=== PATIENT | female | born 1990 | race Caucasian/White ===

== ENCOUNTER 2019-05-24 09:07 | Emergency (ER) | payer OTHER, SELFPAY ==
--- NOTE | 2019-05-24 09:16 | ED.URI ---
HPI - URI/Sore Throat General Chief Complaint: Upper Respiratory Infection Stated Complaint: EARACHE/SORE THROAT Time Seen by Provider: 05/24/19 09:27 Source: patient and RN notes reviewed Mode of arrival: ambulatory Limitations: no limitations History of Present Illness HPI Narrative: 29-year-old female presents with concern for left sore throat and left ear pain that started 2 days ago. Reports pain worsened yesterday. She reports she has had sinus surgery for deviated septum in 2011, symptoms are starting to worsen since her sinus surgery. She reports sinus congestion for 4 days. She denies fever, chills, general malaise. Reports she has been trying to use Flonase. Denies ear discharge MD elicited complaint: other (ear) Related Data Home Medications Medication Instructions Recorded Confirmed metformin 500 mg PO BID 05/24/19 05/24/19 semaglutide [Ozempic] 1 mg SUBCUT WEEKLY 05/24/19 05/24/19 sertraline 150 mg PO DAILY 05/24/19 05/24/19 Allergies Allergy/AdvReac Type Severity Reaction Status Date / Time No Known Allergies Allergy Verified 05/24/19 09:23 Review of Systems Review of Systems: Narrative: CONSTITUTIONAL: Denies malaise, chills, sweats, or fever. EYES: Denies visual changes, redness, or discharge. ENT: Reports rhinorrhea, congestion, sinus pain, left otalgia and sore throat. CARDIOVASCULAR: Denies chest pain, palpitations, or edema. RESPIRATORY: Denies cough or dyspnea. GASTROINTESTINAL: Denies abdominal pain, nausea, vomiting, diarrhea SKIN: Denies rash or itching. MUSCULOSKELETAL: Denies myalgia. NEUROLOGIC: Denies headache. All systems reviewed & are unremarkable except as noted in HPI and below PMFSH Comments At time of signature, agree with nursing past medical, surgical, social and family history. There is no relevant family history pertinent to the presenting complaint Exam Narrative: Exam Narrative: GENERAL: Well-appearing, well-nourished, and in no acute distress. HEAD: Normocephalic, atraumatic. EYES: PERRLA, conjunctivae clear, and EOMI. ENT: Nares clear, turbinates edematous and erythematous, more edematous on the left, clear discharge. Mucous membranes moist. TM pearly barrera with dull light reflex on the left, sharp light reflex on the right; no tragal tenderness. Oropharynx not erythematous without lesions. Tonsils not enlarged and without exudate, no drooling, no hoarseness, no trismus. NECK: Supple. No lymphadenopathy CHEST: Clear to auscultation, breath sounds equal. No wheezing, rhonchi, rales, or stridor. No respiratory distress, speaks in full sentences. HEART: Regular rate and rhythm. No murmur heard. Normal peripheral pulses. SKIN: Warm, dry, no rash. NEURO: Alert and oriented x3. PSYCH: Normal mood and affect Course Course Emergency Course: Patient is aware of diagnosis, understands and agrees to treatment plan. Anticipatory guidance given. Patient agrees to follow-up as directed and is aware of reasons to seek care at the emergency department. Portions of this record may have been created with voice recognition software Vital Signs Vital signs: Vital Signs Temperature 98 F 05/24/19 09:17 Pulse Rate 94 05/24/19 09:17 Respiratory Rate 20 05/24/19 09:17 Blood Pressure 125/92 H 05/24/19 09:17 Pulse Oximetry 98 05/24/19 09:17 Temperature 98 F 05/24/19 09:17 Pulse Rate 94 05/24/19 09:17 Respiratory Rate 20 05/24/19 09:17 Blood Pressure 125/92 H 05/24/19 09:17 Pulse Oximetry 98 05/24/19 09:17 Reviewed. Patient has been instructed to follow up with her primary care provider within the next week regarding her elevated blood pressure today.. MDM - URI/Sore Throat MDM Narrative Medical decision making narrative: CONSTITUTIONAL: Denies malaise, chills, sweats, or fever. EYES: Denies visual changes, redness, or discharge. ENT: Reports rhinorrhea, congestion, sinus pain, otalgia and sore throat. CARDIOVASCULAR: Denies chest pain, palpitations, or kolby
[2019-05-24 09:17] VITALS: BP 125/92; PULSE 94; RESP 20; TEMP 36.6; O2SAT 98
== END 2019-05-24 09:46 | disposition home or self-care (01) ==
PROVIDERS: Emergency Provider Nurse Practitioner; PCP Family Medicine
DX: J01.90 Acute sinusitis, unspecified (principal); H92.02 Otalgia, left ear; E11.9 Type 2 diabetes mellitus without complications; F41.9 Anxiety disorder, unspecified
CPT/HCPCS: 99213; G0463

== ENCOUNTER 2019-06-08 09:01 | Emergency (ER) | payer OTHER, SELFPAY ==
--- NOTE | ~2019-06-08 | CT_ITS ---
EXAMINATION: CT abdomen pelvis w con DATE: 06/08/2019 10:51 INDICATION: Epigastric pain and vomiting TECHNIQUE: Computed tomography (CT) of the abdomen and pelvis was performed with 100 mL Omnipaque-350 intravenous contrast. Automated exposure control and iterative reconstruction technique were employe d. The dose-length product was 1582.12 mGy-cm. COMPARISON: None FINDINGS: Lung bases are clear. Heart size is normal. No pericardial or pleural effusion. Hepatomegaly with dif fuse hepatic steatosis with focal sparing along the gallbladder fossa. Gallbladder, pancreas, bilater al adrenal glands and kidneys are normal. Nonspecific splenomegaly measuring 15.3 cm in length. Bowel s including the appendix are normal. Bladder, anteverted uterus and bilateral adnexa are unremarkable . No free intraperitoneal gas or fluid. No pathologically enlarged thoracic lymphadenopathy. Supraumb ilical and infraumbilical ventral diastases containing fat with tiny fat-containing umbilical hernia. Mild lower lumbar levocurvature with mild spondylosis. IMPRESSION: 1. No acute intra-abdominal/pelvic process. 2. Hepatosplenomegaly with diffuse hepatic steatosis which may be related to body habitus. Reviewed, dictated and finalized at location A. GER PERIOPERATIVE IMPRESSION: 1. No acute intra-abdominal/pelvic process. 2. Hepatosplenomegaly with diffuse hepatic steatosis which may be related to sweta dy habitus.
[2019-06-08 09:16] VITALS: BP 137/88; PULSE 133; RESP 20; TEMP 36.2; O2SAT 100
--- NOTE | 2019-06-08 09:26 | ED.ABDPAIN ---
HPI - Abdominal Pain General Chief Complaint: Abdominal Pain Stated Complaint: Abdomen pain Time Seen by Provider: 06/08/19 09:26 Source: patient Mode of arrival: ambulatory Limitations: no limitations History of Present Illness HPI narrative: 29-year-old woman comes in today complaining of vomiting and diarrhea that started overnight. She states that she woke up at 2:00 a.m. and had an episode of lumen is diarrhea. Approximately 2 hours later she woke up and started vomiting. She also started having epigastric pain. She denies any sick exposures and has had no fever, dysuria, hematuria, blood in her stool or vomitus, melena, or rash. MD elicited complaint: abdominal pain Onset (ago): hour(s) (6) Pain Consistency: constant Location: epigastric Severity: severe Quality: burning Radiation: none Migration to: no migration Relieving factors: vomiting Associated symptoms: nausea, vomiting and diarrhea Related Data Patient : No Home Medications Medication Instructions Recorded Confirmed metformin 500 mg PO BID 05/24/19 06/08/19 semaglutide [Ozempic] 1 mg SUBCUT WEEKLY 05/24/19 06/08/19 sertraline 150 mg PO DAILY 05/24/19 06/08/19 albuterol sulfate [ProAir HFA] 2 puff INHALATION PRN 06/08/19 06/08/19 alprazolam 0.5 mg PO PRN 06/08/19 06/08/19 norgestimate-ethinyl estradiol 1 tablet PO DAILY 06/08/19 06/08/19 [Sprintec (28)] Allergies Allergy/AdvReac Type Severity Reaction Status Date / Time No Known Allergies Allergy Verified 05/24/19 09:23 Review of Systems Constitutional: Constitutional: Denies chills, Denies fever(s) and Denies weakness Eyes: Eyes: Denies change in vision and Denies photophobia ENT: Denies dysphagia, Denies nasal congestion and Denies sore throat Cardiovascular: Cardiovascular: Denies chest pain and Denies radiating jaw, neck or arm pain Respiratory: Respiratory: Denies cough, Denies dyspnea and Denies wheezing Gastrointestinal: Gastrointestinal: Reports abdominal pain, Reports diarrhea, Reports nausea and Reports vomiting Genitourinary: Genitourinary: Denies hematuria, Denies nocturia and Denies dysuria Musculoskeletal: Musculoskeletal: Denies arthralgias and Denies muscle cramps Integumentary/Breasts: Skin/Breast: Denies pruritus, Denies erythema and Denies rash Neurologic: Denies vertigo, Denies dizziness and Denies syncope Psychiatric: Psychiatric: Denies anxiety and Denies depression Endocrine: Endocrine: Denies polydipsia and Denies polyuria Hematologic/Lymphatic: Hematologic/Lymphatic: Denies easy bleeding and Denies easy bruising Allergic/Immunologic: Allergic/Immunologic: Denies lip swelling and Denies wheezing PMFSH Past Medical History Medical History Anxiety Type 2 diabetes mellitus Surgical History Surgical History H/O sinus surgery History of Social History Social History Smoking status: Never smoker Substance use: never Living arrangements: with family Exam Const: General: alert Nutritional Appearance: obese Orientation/consciousness: patient oriented x3 Limitations: no limitations Other: moderate acute distress. HENMT: Ears: external ears normal, TM's normal bilaterally and EAC's normal Mouth: Yes Normal oral and palatal mucosa present and Yes moist mucous membranes Throat: posterior oropharynx normal and uvula midline Eyes: Conjunctivae: conjunctivae normal Pupils: Equal, round and reactive pupils present EOM: EOMs intact bilaterally Resp: Effort & Inspection: normal respiratory effort and not labored Auscultation: clear to auscultation bilaterally, no rales, no rhonchi and no wheezes Cardio: Rate: regular rate Rhythm: regular rhythm Heart sounds: no murmurs GI: Inspection: non-distended GI Palp: Yes Soft to palpation, Yes Tenderness to palpation
[2019-06-08] MEDS: ONDANSETRON INJ 4 MG/2 ML VIAL IV PUSH (09:32)
[2019-06-08] MEDS: SODIUM CHLORIDE 0.9% IV 1,000 ML 999 ML IV CONT ×2 (09:32→10:49)
[2019-06-08] MEDS: PANTOPRAZOLE SODIUM IV 40 MG VIAL IV PUSH (09:37)
[2019-06-08 09:51] LABS: Basophils Absolute Auto 0.04 K/mm3 (0.00-0.10); Basophils Percent Auto 0.3 % (0.0-1.0); Eosinophils Absolute Auto 0.26 K/mm3 (0.02-0.50); Hematocrit 44.1 % (35.0-49.0); Hemoglobin 14.5 g/dL (12.0-15.0); Immature Granulocyte Absolute 0.06 K/mm3 (0.00-0.00); Immature Granulocyte Percent A 0.5 % (0.0-0.0); Lymphocytes Absolute Auto 0.84 K/mm3 (1.10-4.50); Lymphocytes Percent Auto 6.4 % (18.0-42.0); Mean Corpuscular HGB Conc 32.9 g/dL (32.0-36.0); Mean Corpuscular Hemoglobin 27.8 pg (27.0-31.0); Mean Corpuscular Volume 84.6 fL (78.0-102.0); Mean Platelet Volume 10.9 fl (9.2-11.8); Monocytes Absolute Auto 0.67 K/mm3 (0.10-0.90); Monocytes Percent Auto 5.1 % (2.0-11.0); Neutrophils Absolute Auto 11.3 K/mm3 (1.7-7.2); Neutrophils Percent Auto 85.7 % (50.0-70.0); Platelet Count Result 170 K/mm3 (150-420); Red Blood Count 5.21 M/mm3 (4.20-5.40); Red Cell Distribution Width 12.9 % (11.6-14.4); White Blood Count 13.2 K/mm3 (4.8-10.8)
[2019-06-08 09:53] LABS: Bilirubin Urine Negative (Negative); Blood Urine Negative (Negative); Glucose Urine UA Negative (Negative); Ketones Urine Trace (Negative); Leukocyte Esterase Ur Negative (Negative); Nitrate Urine Negative (Negative); Protein Urine 2+ (Negative); Specific Grav Ur >= 1.030 (1.010-1.020); Urobilinogen Urine 0.2 mg/dL (0.2-1.0); pH Urine 5.5 (5.0-8.0)
[2019-06-08 09:54] LABS: Add Urine Microscopic? YES; Appearance Urine Clear (Clear); Color Urine Dark Yellow (Yellow)
[2019-06-08 09:55] LABS: Pregnancy On Board Control Negative; Urine Pregnancy Test Negative
[2019-06-08 09:56] LABS: Specific Gravity Ur > 1.030 (1.010-1.035)
[2019-06-08 10:08] LABS: Alanine Aminotransferase 39 U/L (14-59); Albumin Level 3.4 g/dL (3.4-5.0); Alkaline Phosphatase 86 U/L (46-116); Anion Gap 19.4 mmol/L (7-16); Aspartate Amino Transferase 33 U/L (15-37); Bilirubin,Total 0.4 mg/dL (0.00-1.00); Blood Urea Nitrogen 19 mg/dL (7-18); Calcium 8.4 mg/dL (8.5-10.1); Carbon Dioxide 20 mmol/L (21-32); Chloride 104 mmol/L (98-108); Estimated CRCL calculation 102 ml/min; Estimated Glomerular Filt Rate > 60; GGT 31 U/L (5-55); Glucose 174 mg/dL (70-99); Lipase 106 U/L (73-393); Osmolality Calculated 294 mOsm/kg (285-295); Potassium 4.4 mmol/L (3.5-5.1); Sodium 139 mmol/L (136-145); Total Protein 7.2 g/dL (6.4-8.2)
[2019-06-08] MEDS: METOCLOPRAMIDE HCL INJ 10 MG/2 ML VIAL IV PUSH (10:08)
[2019-06-08] MEDS: HYDROMORPHONE HCL 2 MG/ML VIAL 0.5 MG IV PUSH (10:09)
[2019-06-08 10:22] VITALS: BP 126/79; PULSE 122; RESP 20; O2SAT 96
--- NOTE | 2019-06-08 10:29 | PC.NURSE ---
Report given to Carolann Stewart
[2019-06-08 12:13] VITALS: PULSE 89; RESP 20; TEMP 36.6; O2SAT 97
== END 2019-06-08 12:14 | disposition home or self-care (01) ==
PROVIDERS: Emergency Provider Emergency Medicine; PCP Family Medicine
DX: K52.9 Noninfective gastroenteritis and colitis, unspecified (principal)
CPT/HCPCS: 36415; 74177; 80053; 81001; 81025; 82977; 83690; 85025; 96361; 96374; 96375; 99283; 99284; C9113; J1170; J2405; J2765; J7030; Q9965

== ENCOUNTER 2022-02-13 02:30 | Emergency (ER) | payer OTHER, SELFPAY ==
[2022-02-13 02:31] VITALS: BP 140/90; PULSE 90; RESP 20; TEMP 37; O2SAT 98
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
--- NOTE | 2022-02-13 03:21 | PC.NURSE ---
offered family to be with patient, family declined
[2022-02-13 03:35] VITALS: BP 140/90; PULSE 78; RESP 18; TEMP 37; O2SAT 100
== END 2022-02-13 03:41 | disposition home or self-care (01) ==
PROVIDERS: Emergency Provider Emergency Medicine; PCP Family Medicine
DX: T14.8XXA Other injury of unspecified body region, initial encounter (principal); T76.11XA Adult physical abuse, suspected, initial encounter
CPT/HCPCS: 99282

== ENCOUNTER 2022-09-15 18:08 | Emergency (ER) | payer OTHER, SELFPAY ==
[2022-09-15 19:02] VITALS: BP 127/85; PULSE 78; RESP 16; TEMP 36.8; O2SAT 100
--- NOTE | 2022-09-15 19:17 | ED.URI ---
HPI - URI/Sore Throat General Chief Complaint: Upper Respiratory Infection Stated Complaint: SORE THROAT/SINUS CONGESITON Time Seen by Provider: 09/15/22 19:17 Source: patient Mode of arrival: ambulatory Limitations: no limitations History of Present Illness HPI Narrative: Patient is a 32-year-old female who presents with 4 days of congestion, ear fullness, intermittent cough and sore throat. Patient states sore throat is worsening. Has been taking Mucinex nasal spray, Benadryl and daily allergy medicine with moderate relief. Denies any fever, chills, nausea, vomiting, diarrhea. Related Data Home Medications Medication Instructions Recorded Confirmed sertraline 100 mg tablet 150 mg PO DAILY 05/24/19 09/15/22 albuterol sulfate 90 mcg/actuation 2 puff inhalation PRN 06/08/19 02/13/22 aerosol inhaler (ProAir HFA) alprazolam 0.5 mg tablet 0.5 mg PO PRN 06/08/19 02/13/22 minocycline 100 mg capsule 100 mg BID 09/15/22 09/15/22 norgestimate 0.25 mg-ethinyl 1 tablet DAILY 09/15/22 09/15/22 estradiol 35 mcg tablet (Sprintec (28)) tirzepatide 2.5 mg/0.5 mL 5 mg subcut WEEKLY 09/15/22 09/15/22 subcutaneous pen injector (Mounjaro) Allergies Allergy/AdvReac Type Severity Reaction Status Date / Time No Known Allergies Allergy Verified 09/15/22 19:04 Review of Systems Review of Systems: All systems reviewed & are unremarkable except as noted in HPI and below Constitutional: Constitutional: Denies body ache(s), Denies chills, Denies fatigue, Denies fever(s), Denies headache(s), Denies malaise and Denies weakness Eyes: Eyes: Denies blurry vision, Denies itchy eyes and Denies loss of vision ENT: Denies otalgia, Denies headache(s), Reports nasal congestion, Denies sinus pain and Reports sore throat Cardiovascular: Cardiovascular: Denies chest pain, Denies irregular heart rhythm and Denies dyspnea Respiratory: Respiratory: Reports cough and Denies dyspnea Gastrointestinal: Gastrointestinal: Denies abdominal pain, Denies diarrhea, Denies nausea and Denies vomiting Musculoskeletal: Musculoskeletal: Denies back pain, Denies myalgias and Denies arthralgias Integumentary/Breasts: Skin/Breast: Denies pruritus and Denies rash Neurologic: Denies headache(s), Denies loss of vision and Denies weakness Psychiatric: Psychiatric: Reports no additional psychiatric complaints Endocrine: Endocrine: Denies fatigue Allergic/Immunologic: Allergic/Immunologic: Denies itchy eyes PMFSH Past Medical History Medical History (Updated 09/15/22 @ 19:44 by Vero Page APRN) Anxiety Type 2 diabetes mellitus Surgical History Surgical History H/O sinus surgery History of Social History Social History Smoking status: Never smoker Substance use: never Living arrangements: with family Comments At time of signature, agree with nursing past medical, surgical, social and family history. There is no relevant family history pertinent to the presenting complaint. Exam Const: General: cooperative, healthy appearing, comfortable, no acute distress and well nourished Nutritional Appearance: well nourished Orientation/consciousness: patient oriented x3 Limitations: no limitations HENMT: Head: normal to inspection, normocephalic and atraumatic Ears: hearing grossly normal bilaterally, external ears normal, TM's normal bilaterally, EAC's normal and no periauricular adenopathy Face/Nose/Sinus: Normal external nose present, Abnormal mucous membranes and turbinates present erythematous bilateral and diffuse, normal facial exam, sinuses nontender and face symmetric Face and sinus: normal facial exam, sinuses nontender and face symmetric Mouth: Yes Normal oral and palatal mucosa present, Yes lip normal, Yes tongue normal, Yes Normal salivary glands and ducts present, Yes oropharynx normal and Yes moist mucous
== END 2022-09-15 19:49 | disposition home or self-care (01) ==
PROVIDERS: Emergency Provider Nurse Practitioner Family; PCP Family Medicine
DX: J06.9 Acute upper respiratory infection, unspecified (principal); E11.9 Type 2 diabetes mellitus without complications; F41.9 Anxiety disorder, unspecified
CPT/HCPCS: 87081; 87880; 99213; G0463

== ENCOUNTER 2023-01-18 19:27 | Emergency (ER) | payer OTHER, SELFPAY ==
--- NOTE | ~2023-01-18 | XR_ITS ---
EXAMINATION: XR chest 2V DATE: 01/18/2023 21:02 INDICATION: Cough and shortness of breath TECHNIQUE: PA and lateral views of the chest are obtained. COMPARISON: None available FINDINGS: The lungs are free of acute opacities. No pleural effusion or pneumothorax. The cardiomedia stinal silhouette is normal. There is mild thoracic spondylosis. IMPRESSION: 1. No acute cardiopulmonary abnormality. Reviewed, dictated and finalized at location F.
[2023-01-18 19:30] VITALS: BP 136/86; PULSE 106; RESP 18; TEMP 37; O2SAT 100
[2023-01-18 19:38] VITALS: O2SAT 100
[2023-01-18 20:53] VITALS: BP 139/96; PULSE 90; RESP 24; O2SAT 96
--- NOTE | 2023-01-18 20:54 | PC.NURSE ---
Pt to XRAY at this time.
--- NOTE | 2023-01-18 21:31 | ED.GENADULT ---
HPI - General Adult General Chief complaint: Shortness of Breath/Dyspnea Stated complaint: sob Time Seen by Provider: 01/18/23 20:36 History of Present Illness HPI narrative: Patient is a 32-year-old female who presents the emergency department with chief complaint of shortness of breath and cough. The patient reports that she was recently diagnosed with a sinus infection and was started on amoxicillin patient reports that she has felt as though it is hard to breathe at times and feels tight in her chest patient reports that occasionally she will have a productive cough that usually is dry. The patient denies fever reports that she had a little bit of a sore throat with this as well. Patient is currently on amoxicillin the patient reports she been having to use her rescue inhaler at Related Data Home Medications Medication Instructions Recorded Confirmed sertraline 100 mg tablet 150 mg PO DAILY 05/24/19 09/15/22 albuterol sulfate 90 mcg/actuation 2 puff inhalation PRN 06/08/19 02/13/22 aerosol inhaler (ProAir HFA) alprazolam 0.5 mg tablet 0.5 mg PO PRN 06/08/19 02/13/22 minocycline 100 mg capsule 100 mg BID 09/15/22 09/15/22 norgestimate 0.25 mg-ethinyl 1 tablet DAILY 09/15/22 09/15/22 estradiol 35 mcg tablet (Sprintec (28)) tirzepatide 2.5 mg/0.5 mL 5 mg subcut WEEKLY 09/15/22 09/15/22 subcutaneous pen injector (Mounjaro) Allergies Allergy/AdvReac Type Severity Reaction Status Date / Time No Known Allergies Allergy Verified 01/18/23 19:40 Review of Systems Review of Systems: A 10 system review of systems was completed on the patient and is negative except for what is stated in the HPI. Nursing and ancillary documentation was reviewed. [facility] Past Medical History Medical History (Updated 01/18/23 @ 21:58 by Richard Garner MD) Anxiety Type 2 diabetes mellitus Surgical History Surgical History H/O sinus surgery History of Social History Social History Smoking status: Never smoker Substance use: never Living arrangements: with family Exam Narrative: GENERAL: Well-appearing, well-nourished, and in no acute distress. HEAD: Normocephalic, atraumatic. EYES: PERRLA and EOMI. ENT: Nares clear, no rhinorrhea or epistaxis. Mucous membranes moist. NECK: Supple. CHEST: Clear to auscultation. No respiratory distress. HEART: Regular rate and rhythm. No murmur heard. Normal peripheral pulses. ABDOMEN: Soft, nontender, nondistended, normal active bowel sounds. EXTREMITIES: Normal range of motion. No edema. SKIN: Warm, dry, no rash. NEURO: No focal deficits. Alert and oriented x3. PSYCH: Normal mood and affect. Course Vital Signs Vital signs: Vital Signs Temperature 37.0 C 01/18/23 19:30 Pulse Rate 106 H 01/18/23 19:30 Respiratory Rate 18 01/18/23 19:30 Blood Pressure 136/86 01/18/23 19:30 Pulse Oximetry 100 01/18/23 19:30 Oxygen Delivery Room Air 01/18/23 19:30 Temperature 37.0 C 01/18/23 19:30 Pulse Rate 90 01/18/23 20:53 Respiratory Rate 24 H 01/18/23 20:53 Blood Pressure 139/96 H 01/18/23 20:53 Pulse Oximetry 96 01/18/23 20:53 Oxygen Delivery Room Air 01/18/23 19:38 Medical Decision Making [facility] Narrative Medical decision making narrative: Differential diagnosis includes viral syndrome, pneumonia, influenza, COVID Plain film chest x-ray showed no evidence of pneumonia, pneumothorax Patient was given 10 of Decadron in the emergency department COVID and flu were negative Patient was started on a prescription for Tessalon Perles and given a pulse of steroids. Vital Signs Vital Signs: Vital Signs Temperature 37.0 C 01/18/23 19:30 Pulse Rate 106 H 01/18/23 19:30 Respiratory Rate 18 01/18/23 19:30 Blood Pressure 136/86 01/18/23 19:30 Pulse Oximetry 100 09
[2023-01-18 21:47] LABS: Influenza A QL RT-PCR Negative (Negative); Influenza B QL RT-PCR Negative (Negative); SARS-CoV-2 RNA PCR Negative (Negative)
== END 2023-01-18 22:54 | disposition home or self-care (01) ==
PROVIDERS: Emergency Provider Emergency Medicine; PCP Family Medicine
DX: J20.8 Acute bronchitis due to other specified organisms (principal); J06.9 Acute upper respiratory infection, unspecified; Z20.822 Contact with and (suspected) exposure to COVID-19; E11.9 Type 2 diabetes mellitus without complications; F41.9 Anxiety disorder, unspecified; Z79.85 Long-term (current) use of injectable non-insulin antidiabetic drugs
CPT/HCPCS: 71046; 87636; 96372; 99283; J1100

== ENCOUNTER 2023-05-19 16:06 | Emergency (ER) | payer OTHER, SELFPAY ==
--- NOTE | ~2023-05-19 | CT_ITS ---
EXAMINATION: CT abdomen pelvis w con DATE: 05/19/2023 17:26 INDICATION: Abdominal pain, n/v gastritis 5 days ago TECHNIQUE: Computed tomography (CT) of the abdomen and pelvis was performed with 100 mL Omnipaque-350 intravenous contrast. Automated exposure control and iterative reconstruction technique were employe d. The dose-length product was 685.32 mGy-cm. COMPARISON: 06/08/2019. FINDINGS: Lower thorax: Unremarkable Liver: Enlarged. Biliary/Gallbladder: Gallbladder is normal. No bile duct dilation. Pancreas: No mass or duct dilation. Spleen: Enlarged. Adrenals:No mass. Kidneys: No suspicious mass, obstructing stone, or hydronephrosis. GI tract: Status post gastric surgery. No small or large bowel dilation. Normal appendix. Mesentery/Peritoneum: No ascites, mass, or free air. Retroperitoneum: No mass. Pelvis: Normal uterus. Empty urinary bladder. 3 cm simple left ovarian cyst which requires no additio nal evaluation this time. Soft Tissues: Ventral diastases. Small uncomplicated fat-containing umbilical hernia. Bones: No acute osseous finding. IMPRESSION: No acute abdominopelvic process detected. Persistent hepatosplenomegaly. Reviewed, dictated and finalized at location K. ANICAL TEST TECHNICIAN
[2023-05-19 16:06] VITALS: BP 155/88; PULSE 79; RESP 20; TEMP 36.3; O2SAT 98
--- NOTE | 2023-05-19 16:20 | ED.ABDPAIN ---
HPI - Abdominal Pain General Chief Complaint: Abdominal Pain Stated Complaint: abdominal pain Time Seen by Provider: 05/19/23 16:13 Source: patient Mode of arrival: ambulatory History of Present Illness HPI narrative: 33 yo F with PMHx of DM 2, s/p gastric sleeve surgery, PCOS, on Mounjaro, presents to ED due to severe abdominal pain that started today. 5 days ago she had the stomach flu but it's getting better. Then today suddenly have severe crampy abdominal pain. Last BM was a few minutes ago, waterry and loose. Before this bowel movement her last BM was 2 days ago and normal. No blood in stool. MD elicited complaint: abdominal pain Pertinent past history: none Onset (ago): hour(s) Pain Consistency: constant Location: periumbilical and suprapubic Severity: severe Quality: cramping Radiation: none Exacerbating factors: nothing Relieving factors: nothing Associated symptoms: nausea Related Data Home Medications Medication Instructions Recorded Confirmed sertraline 100 mg tablet 150 mg PO DAILY 05/24/19 09/15/22 albuterol sulfate 90 mcg/actuation 2 puff inhalation PRN 06/08/19 02/13/22 aerosol inhaler (ProAir HFA) alprazolam 0.5 mg tablet 0.5 mg PO PRN 06/08/19 02/13/22 minocycline 100 mg capsule 100 mg BID 09/15/22 09/15/22 norgestimate 0.25 mg-ethinyl 1 tablet DAILY 09/15/22 09/15/22 estradiol 35 mcg tablet (Sprintec (28)) tirzepatide 2.5 mg/0.5 mL 5 mg subcut WEEKLY 09/15/22 09/15/22 subcutaneous pen injector (Mounjaro) Allergies Allergy/AdvReac Type Severity Reaction Status Date / Time No Known Allergies Allergy Verified 01/18/23 19:40 Review of Systems Constitutional: Constitutional: Reports as per HPI and Reports no additional constitutional complaints Eyes: Eyes: Reports as per HPI and Reports no additional eye complaints ENT: Reports system reviewed and no additional complaints, except as documented and Reports as per HPI Cardiovascular: Cardiovascular: Reports as per HPI and Reports no additional cardiovascular complaints Respiratory: Respiratory: Reports as per HPI and Reports no additional respiratory complaints Gastrointestinal: Gastrointestinal: Reports as per HPI and Reports no additional gastrointestinal complaints Genitourinary: Genitourinary: Reports as per HPI Musculoskeletal: Musculoskeletal: Reports no additional musculoskeletal complaints and Reports as per HPI Integumentary/Breasts: Skin/Breast: Reports system reviewed and no additional complaints, except as docu and Reports as per HPI Neurologic: Reports system reviewed and no additional complaints, except as documented and Reports as per HPI Psychiatric: Psychiatric: Reports no additional psychiatric complaints and Reports as per HPI Endocrine: Endocrine: Reports no additional endocrine complaints and Reports as per HPI Hematologic/Lymphatic: Hematologic/Lymphatic: Reports no additional hematologic/lymphatic complaints and Reports as per HPI Allergic/Immunologic: Allergic/Immunologic: Reports no additional allergic/immunologic complaints and Reports as per HPI [facility] Past Medical History Medical History (Updated 05/19/23 @ 18:03 by Chinedu Baez MD) Anxiety Type 2 diabetes mellitus Surgical History Surgical History H/O sinus surgery History of Social History Social History Smoking status: Never smoker Substance use: never Living arrangements: with family Exam Const: General: cooperative, healthy appearing, comfortable, no acute distress, well developed, alert, awake, average body habitus and well nourished Nutritional Appearance: average body habitus and well nourished Orientation/consciousness: oriented to person, oriented to place and oriented to time Limitations: no limitations HENMT: Head: normal to inspection Ears: hearing grossly normal bilaterally, exte
[2023-05-19 16:43] LABS: Basophils Absolute Auto 0.03 K/mm3 (0.00-0.10); Basophils Percent Auto 0.3 % (0.0-1.0); Hematocrit 39.7 % (35.0-49.0); Immature Granulocyte Absolute 0.02 K/mm3 (0.00-0.00); Immature Granulocyte Percent A 0.2 % (0.0-0.0); Lymphocytes Absolute Auto 3.24 K/mm3 (1.10-4.50); Lymphocytes Percent Auto 37.7 % (18.0-42.0); Mean Corpuscular HGB Conc 32.7 g/dL (32.0-36.0); Mean Corpuscular Hemoglobin 27.7 pg (27.0-31.0); Mean Corpuscular Volume 84.6 fL (78.0-102.0); Mean Platelet Volume 9.7 fl (9.2-11.8); Monocytes Absolute Auto 0.39 K/mm3 (0.10-0.90); Monocytes Percent Auto 4.5 % (2.0-11.0); Neutrophils Absolute Auto 4.9 K/mm3 (1.7-7.2); Neutrophils Percent Auto 57.3 % (50.0-70.0); Platelet Count Result 261 K/mm3 (150-420); Red Blood Count 4.69 M/mm3 (4.20-5.40); Red Cell Distribution Width 12.4 % (11.6-14.4); White Blood Count 8.6 K/mm3 (4.8-10.8)
[2023-05-19 16:46] LABS: Bilirubin Urine Negative (Negative); Blood Urine 2+ (Negative); Color Urine Yellow (Yellow); Glucose Urine UA Negative (Negative); Ketones Urine Trace (Negative); Leukocyte Esterase Ur 2+ LEU/UL (Negative); Nitrate Urine Negative (Negative); Protein Urine Negative (Negative); Specific Grav Ur >= 1.030 (1.010-1.020); Urobilinogen Urine 0.2 mg/dL (0.2-1.0)
[2023-05-19 16:57] LABS: Alanine Aminotransferase 28 U/L (14-59); Albumin Level 3.4 g/dL (3.4-5.0); Alkaline Phosphatase 70 U/L (46-116); Anion Gap 7 mmol/L (8-16); Aspartate Amino Transferase 14 U/L (15-37); Bilirubin,Total 0.3 mg/dL (0.00-1.00); Blood Urea Nitrogen 11 mg/dL (7-18); Calcium 8.3 mg/dL (8.5-10.1); Carbon Dioxide 29 mmol/L (21-32); Chloride 104 mmol/L (98-108); Estimated CRCL calculation 92 ml/min; Estimated Glomerular Filt Rate > 60; Glucose 92 mg/dL (70-99); Lipase 41 U/L (16-77); Osmolality Calculated 289 mOsm/kg (285-295); Potassium 3.7 mmol/L (3.5-5.1); Sodium 140 mmol/L (136-145)
[2023-05-19 16:58] LABS: Add Urine Microscopic? YES; Appearance Urine Cloudy (Clear); Bacteria Urine 2+ /hpf; Mucus Urine Moderate /lpf; Squamous Epithelial Cell Urine Many /hpf (Few); WBC Clumps Urine Present /hpf; WBC Urine 21-30 /hpf (0-3)
[2023-05-19 17:00] LABS: Pregnancy On Board Control Positive; Urine Pregnancy Test Negative
[2023-05-19] MEDS: KETOROLAC 15 MG/ML VIAL (*BKC) IV PUSH (17:28)
[2023-05-19] MEDS: SODIUM CHLORIDE 0.9% IV 1,000 ML 999 ML IV CONT (17:30)
[2023-05-19 18:21] VITALS: BP 130/90; PULSE 65; RESP 20; TEMP 36.7; O2SAT 100
--- NOTE | 2023-05-22 14:14 | PC.NURSE ---
FINAL URINE CULTURE REPORT; NO GROWTH, NO FURTHER ACTION ON TREATMENT NEEDED AT THIS TIME
== END 2023-05-19 18:24 | disposition home or self-care (01) ==
PROVIDERS: Emergency Provider Emergency Medicine
DX: N30.00 Acute cystitis without hematuria (principal); B96.89 Other specified bacterial agents as the cause of diseases classified elsewhere; E11.9 Type 2 diabetes mellitus without complications
CPT/HCPCS: 36415; 74177; 80053; 81001; 81025; 83690; 85025; 87086; 96365; 96375; 99284; J0696; J1885; J7030; Q9967

== ENCOUNTER 2024-07-07 14:39 | Outpatient (CLI) | payer OTHER, SELFPAY ==
[2024-07-07 15:08] LABS: Hematocrit 35.2 % (37.0-47.0); Hemoglobin 11.9 g/dL (12.0-15.0)
[2024-07-07 15:19] LABS: Anion Gap 11 mmol/L (4-12); Blood Urea Nitrogen 16 mg/dL (7-17); Calcium 8.6 mg/dL (8.4-10.2); Carbon Dioxide 24 mmol/L (22-30); Chloride 105 mmol/L (98-107); Estimated Glomerular Filt Rate > 60; Glucose 94 mg/dL (65-110); Sodium 140 mmol/L (137-145)
--- OUTSIDE RECORDS SUMMARY | 2024-07-07 17:24 | XMS_ITS | Clinical Summary ---
Author Organization [facility] Address [address] [place] [address] Care Team Providers Care Quantitative Software Engineer Name Role Phone Joselyn Dupont MD Primary Care Provider [phone] Allergies No known active allergies Medications albuterol sulfate HFA 108 (90 Base) MCG/ACT inhaler Inhale 2 puffs into the lungs every 4 (four) hours as needed. Active sertraline (ZOLOFT) 100 MG tablet Take 2 tablets (200 mg total) by mouth daily. Active SPRINTEC 28 0.25-35 MG-MCG tablet Take 1 tablet by mouth daily. 4 Active ALPRAZolam (XANAX) 0.5 MG tablet Take 1 tablet (0.5 mg total) by mouth 2 (two) times daily as needed. Active minocycline (MINOCIN) 100 MG capsule Take 1 capsule (100 mg total) by mouth 2 (two) times daily. Active MOUNJARO 10 MG/0.5ML injection Inject 10 mg into the skin once a week. 4 Active HYDROcodone-acetami nophen (NORCO) 5-325 MG tabletIndications:A cute Pain < 3 Day Supply Take 1-2 tablets by mouth every 6 (six) hours as needed for Pain. Indications: Acute Pain < 3 Day Supply 12 tablet 4 Active ondansetron (ZOFRAN-ODT) 4 MG disintegrating tabletIndications:C ontusion of face, initial encounter,Contusion of nose, initial encounter Take 1 tablet (4 mg total) by mouth every 8 (eight) hours as needed for Nausea. 12 tablet 4 Active Immunizations Name Administration Dates Next Due MODERNA COVID-19 (12+) MRNA, LNP-S, PF, 100 MCG/ 0.5 ML DOSE 06/10/2020,05/13/2020 Social History Tobacco Use Types Packs/Day Years Used Date Smoking Tobacco: Never Smokeless Tobacco: Never Tobacco Cessation:Counseling Given: Not Answered Alcohol Use Standard Drinks/Week Comments Not Currently 0 (1 standard drink = 0.6 oz pur e alcohol) Comments No Sex and Gender Information Value Date Recorded Sex Assigned at Female 05/30/2024 10:22 AM SEMICONDUCTOR BONDER Legal Sex Female 5:53 PM SEMICONDUCTOR BONDER Gender Identity Not on file Sexual Orientation Not on file Last Filed Vital Signs Vital Sign Reading Time Taken Comments Blood Pressure 153/108 07/04/2023 7:26 PM CDT Pulse 101 07/04/2023 7:26 PM CDT Temperature 36.6 C (97.8 F) 07/04/2023 7:26 PM CDT Respiratory Rate 16 07/04/2023 7:26 PM CDT Oxygen Saturation 100% 07/04/2023 7:26 PM CDT Inhaled Oxygen Concentration - - Weight 85.8 kg (189 lb 3.2 oz) 07/04/2023 7:26 P M CDT Height 172.7 cm (5' 8 ) 07/04/2023 7:26 PM CDT Body Mass Index 28.77 07/04/2023 7:26 PM CDT Plan of Treatment Health Maintenance Due Date Last Done Comments Cervical Cancer Screening Pa p Smear (Age 30 to 64) Every 3 Years 1990 Annual Physical 1993 Hepatitis C 2008 Hepatitis B Vaccines (1 of 3 - 19+ 3-dose series) 2009 Cervical Cancer Screening Pa p with HPV Testing (Age 30 to 64) Every 5 Years 2020 Cervical Cancer Screening wi th HPV 2020 COVID-19 Vaccine ( - 2023-2 5 season) 2023 06/10/2020, 05/13/2020 Influenza Adult (#1) 2024 01/12/2020, 04/23/2012 DTaP, Tdap and Td Vaccines ( 3 - Td or Tdap) 10/27/2027 10/26/2017, 04/23/2008 HPV Vaccines Aged Out No longer eligi ble based on patient's age to complete this topic Meningococcal B Vaccine Aged Out No l onger eligible based on patient's age to complete this topic Meningococcal Vaccine Aged Out No swathi mir eligible based on patient's age to complete this topic Pneumococcal Vaccine: Pediatrics (0 to 5 Years) and At-Risk Patients (6 to 64 Years) Aged Out No longer eligible b ased on patient's age to complete this topic RSV Immunizations Under 20 Months Aged Out No longer eligible b ased on patient's age to complete this topic Insurance [facility] [employer] [address] [address] Care Teams Quantitative Software Engineer Relationship Specialty Start Date End Date Joselyn Dupont MD [address] [place] [address] PCP - General FAMILY PRACTICE 06/15/20
--- OUTSIDE RECORDS SUMMARY | 2024-07-07 17:24 | XMS_ITS | Clinical Summary ---
Author Organization [employer] [facility] Address [address] [place] [address] Care Team Providers Care Traffic Coordinator Name Role Phone Unavailable Primary Care Provider Unavailabl e Medications tirzepatide (Mounjaro) 10 mg/0.5 mL Pen Injector INJECT 10 MG SUBCUTANEOUSLY ONCE WEEKLY. 2 mL 1 07/15/2023 12:54 PM CDT 4 Active tirzepatide (Mounjaro) 12.5 mg/0.5 mL Pen Injector Inject 12.5 mg by subcutaneous injection every 7 days. 4 mL 2 10/03/2023 3:48 PM CDT 4 Active tirzepatide (Mounjaro) 12.5 mg/0.5 mL Pen Injector Administer 12.5 mg under the skin once weekly 2 mL 2 10/31/2023 11:44 AM CDT 4 Active tirzepatide (Mounjaro) 15 mg/0.5 mL Pen Injector Inject 15 mg by subcutaneous injection every 7 days. 2 mL 2 12/31/2023 12:06 PM CDT 4 Active tirzepatide (Mounjaro) 15 mg/0.5 mL Pen Injector Inject 15 mg by subcutaneous injection every 7 days. 2 mL 5 04/09/2024 5:54 PM LAP MACHINE OPERATOR 4 Active tirzepatide (Mounjaro) 15 mg/0.5 mL Pen Injector Inject 0.5 mL (15 mg) by subcutaneous injection every week as directed 2 mL 5 06/14/2024 9:29 AM LAP MACHINE OPERATOR 5 Active Encounters Date Type Department Care Team Description 06/28/2024 External Device Data [facility] Provider, Abstract 06/27/2024 External Device Data [facility] Provider, Abstract 06/25/2024 External Device Data [facility] Provider, Abstract 06/11/2024 External Device Data [facility] Provider, Abstract 06/10/2024 External Device Data [facility] Provider, Abstract 05/14/2024 External Device Data [facility] Provider, Abstract 05/14/2024 External Device Data [facility] Provider, Abstract 05/07/2024 External Device Data [facility] ABSTRACTION Provider, Abstract from Last 3 Months Social History Tobacco Use Types Packs/Day Years Used Date Smoking Tobacco: Never Assessed Comments Unknown Sex and Gender Information Value Date Recorded Sex Assigned at Not on file Legal Sex Female 10:46 AM CDT Gender Identity Not on file Sexual Orientation Not on file Plan of Treatment Health Maintenance Due Date Last Done Comments DTAP/TDAP/TD VACCINES (1 - Tdap) 2009 HEPATITIS B VACCINES (1 of 3 - 19+ 3-dose series) 2009 CERVICAL CANCER SCREENING 2020 INFLUENZA VACCINE (#1) 2023 HPV VACCINES Aged Out No longer eligi ble based on patient's age to complete this topic PNEUMOCOCCAL VACCINE 0-49 YEARS Aged Out No longer eligible based on patient's age to complete this topic Insurance [employer] Commercial RX [employer] Member Subscriber Plan / Payer (Ef fective for All Dates) Name:Aretha Schilling Relation to Subscriber:Self Name:Aretha Schilling Payer ID:Not on file Group ID:[id number] Type:RX Commercial Address: [address]
--- OUTSIDE RECORDS SUMMARY | 2024-07-07 17:24 | XMS_ITS | Clinical Summary ---
Author Organization [facility] Address [address] [place] [address] Phone Care Team Providers Care Cobbler Apprentice Name Role Phone Joselyn Dupont MD Unavailable [phone] No, Physician Primary Care Provider [phone] Allergies No known active allergies Medications albuterol HFA (PROVENTIL HFA,VENTOLIN HFA,PROAIR HFA) 90 mcg/actuation inhaler Inhale 2 puffs as needed Active ergocalciferol (VITAMIN D) 50,000 unit capsule Take 1 capsule (50,000 Units total) by mouth 0 9 Active ibuprofen (ADVIL,MOTRIN) 600 mg tablet Take 1 tablet (600 mg total) by mouth every 6 hours as needed 8 Active minocycline (MINOCIN,DYNACI N) 100 mg capsule Take 1 capsule (100 mg total) by mouth 2 (two) times a day 9 Active SPRINTEC, 28, 0.25-35 mg-mcg per tablet Take 1 tablet by mouth daily 3 9 Active spironolactone (ALDACTONE) 25 mg tablet Take 1 tablet (25 mg total) by mouth daily 3 9 Active sertraline (ZOLOFT) 100 mg tablet TAKE 1 & 1/2 TABLETS BY MOUTH DAILY 0 9 Active metFORMIN (GLUCOPHAGE) 500 mg tabletIndicatio ns:Type 2 diabetes mellitus with hyperglycemia, without long-term current use of insulin (HCC) Take 1 tablet (500 mg total) by mouth 2 (two) times a day with meals 180 tablet 1 0 Active ACCU-CHEK AMARA PLUS METER miscIndications :Type 2 diabetes mellitus with hyperglycemia, without long-term current use of insulin ([facility]) Use to test glucose twice daily 1 each 0 Active Additional Information Patient not taking.Reported on 05/16/2024 ACCU-CHEK AMARA PLUS TEST STRP stripIndication s:Type 2 diabetes mellitus with hyperglycemia, without long-term current use of insulin ([facility]) Use to test glucose 2 times daily 200 each 1 0 Active Additional Information Patient not taking.Reported on 05/16/2024 lancets miscIndications :Type 2 diabetes mellitus with hyperglycemia, without long-term current use of insulin ([facility]) Accu-Chek Softclix lancet-- use to test glucose twice daily 200 each 1 0 Active Additional Information Patient not taking.Reported on 05/16/2024 ALPRAZolam (XANAX) 0.5 mg tablet Take 1 tablet (0.5 mg total) by mouth 2 (two) times a day as needed 0 Active empagliflozin (JARDIANCE) 25 mg tabletIndicatio ns:type 2 diabetes mellitus Take 1 tablet (25 mg total) by mouth daily 30 tablet 5 0 Active empagliflozin (Jardiance) 25 mg tabletIndicatio ns:type 2 diabetes mellitus Take 1 tablet (25 mg total) by mouth daily Sample lot [id number] exp 12/21/2020 x 2 bxs=14 tablets 14 tablet 0 Active Additional Information Patient not taking.Reported on 05/16/2024 rimegepant (Nurtec ODT) tablet,disinteg rating Place 1 tablet (75 mg total) under the tongue once as needed Active tirzepatide (Mounjaro) 12.5 mg/0.5 mL pen injector Inject 0.5 mL (12.5 mg total) under the skin every 7 days Active levocetirizine (XYZAL) 5 mg tablet Take 1 tablet (5 mg total) by mouth every evening Active cyanocobalamin/ folic acid (vitamin I09-pkiws acid) 500-400 mcg tablet Take 500 mcg by mouth daily Active topiramate (TOPAMAX) 50 mg tabletIndicatio ns:Migraine Prevention Take 25 mg at bedtime for one week, then take 25 mg twice daily for one week, then take 25 mg in the morning and 50 mg in the evening for one week, then take 50 mg twice daily thereafter. 60 tablet 11 4 Active Additional Information Patient not taking.Reported on 05/16/2024 oxymetazoline 0.05 % nasal spray 2 sprays every 12 (twelve) hours as needed 2 Active HYDROcodone-karla taminophen (NORCO) 5-325 mg per tablet Take 1-2 tablets by mouth every 6 (six) hours as needed 4 Active azelastine (ASTELIN) 137 mcg (0.1 %) nasal spray USE 2 SPRAY(S) IN EACH NOSTRIL TWICE DAILY 4 Active Active Problems Problem Noted Date Diagnosed Date Unspecified disorder of conjunctiva 05/20/2024 Type 2 diabetes mellitus wit h hyperglycemia, without long-term current use of insulin 01/13/2019 Assessment & Plan (12/15/2019 10:18 PM CDT): Chronic, uncontrolled, worsening A1c today 7.8 % Counseled on diet and exercise Start Jardiance 25 mg oral daily with first meal of the day Continue Ozempic 1 mg subcu weekly Continue current dose of metformin Advised to increase physical activity Advised to make an eye doctor as scheduled Do labs soon fasting Will keep checking blood sugars before breakfast and before Follow up up in 3 months Assessment & Plan (05/20/2019 10:28 AM GAS TRANSFER OPERATOR): Chronic, improving with treatment A1c today 6.5 % continue current medication regimen Advised to increase physical activity Advised to make an eye doctor as scheduled Follow up up in 6 months Assessment & Plan (02/10/2019 1:59 PM CDT): Chronic, improving with treatment continue current medication regimen Advised to increase physical activity Advised to make an eye doctor appt [facility]AYLIN Follow up up in 3 months Assessment & Plan (01/13/2019 9:52 PM CDT): Chronic, uncontrolled worsening - HbA1c today - 7.2 % - stop Victoza - start ozempic 0.5 mg SQ weekly for 2-3 weeks than increase to 1 mg Sq weekly - continue the metformin the same - start checkign blood sugars twice daily - before breakfast and before dinner - start on healthy diet plan - eat lot of vegetables, Lean protein Cut back on unhealthy carbs - stop added sugar - increase physical activity - do labs - make an dilated eye exam screen - follow up in 4 weeks Morbid obesity with BMI of 45.0-49.9, adult 12/23 Assessment & Plan (12/15/2019 2:23 PM CDT): Chronic, Improving Discussed about healthy lifestyle habits advise to work on healthy diet, avoid processed foods , increase vegetables and protein and cut back on carb portions and also avoid fruit juices and regular soda and desserts Increase physical activity , recommend at least 150 min of aerobic activity per week and include resistance training 2 x weekly - stop Phentermine and keep working on lifestyle habits Assessment & Plan (05/20/2019 10:29 AM GAS TRANSFER OPERATOR): Chronic, unchanged Discussed about healthy lifestyle habits advise to work on healthy diet, avoid processed foods , increase vegetables and protein and cut back on carb portions and also avoid fruit juices and regular soda and desserts Increase physical activity , recommend at least 150 min of aerobic activity per week and include resistance training 2 x weekly - pt willing to try back oral Phentermine therpay Assessment & Plan (02/10/2019 2:00 PM CDT): Chronic, improving with treatment Discussed about healthy lifestyle habits advise to work on healthy diet, avoid processed foods , increase vegetables and protein and cut back on carb portions and also avoid fruit juices and regular soda and desserts Increase physical activity , recommend at least 150 min of aerobic activity per week and include resistance training 2 x weekly - c/w Phentermine therapy Assessment & Plan (01/13/2019 9:53 PM CDT): Chronic, worsening Counseled on healthy portion control diet Advise to increase physical activity Start Phentermine therapy Vitamin D deficiency 01/13/2019 Assessment & Plan (12/15/2019 2:25 PM CDT): Patient on replacement dose for a long time Recheck levels and further adjust her medication dose PCOS (polycystic ovarian syndrome) 01/13/2019 Assessment & Plan (12/15/2019 2:24 PM CDT): Chronic , stable Recommend intensify healthy lifestyle options - diet and exercise And work on healthy weight loss Pt on oral metformin for insulin resistance On OCP for hormonal regulation On Spironolactone for Hirsutism Assessment & Plan (05/20/2019 10:29 AM GAS TRANSFER OPERATOR): Chronic , stable Recommend intensify healthy lifestyle options - diet and exercise And work on healthy weight loss Pt on oral metformin for insulin resistance On OCP for hormonal regulation On Spironolactone for Hirsutism Assessment & Plan (02/10/2019 2:00 PM CDT): Chronic , stable Recommend intensify healthy lifestyle options - diet and exercise And work on healthy weight loss Pt on oral metformin for insulin resistance On OCP for hormonal regulation On Spironolactone for Hirsutism Assessment & Plan (01/13/2019 9:54 PM CDT): Recommend intensify healthy lifestyle options - diet and exercise And work on healthy weight loss Pt on oral metformin for insulin resistance On OCP for hormonal regulation On Spironolactone for Hirsutism Encounters Date Type Department Care Team Description 05/16/2024 10:30 AM GAS TRANSFER OPERATOR Imaging Exam [facility] Ophthalmology [address] [place] [address] [address]patient [address] [place] [phone] Conjunctival lesion (Primary Dx) 05/16/2024 9:30 AM GAS TRANSFER OPERATOR Office Visit [facility] Ophthalmology [address] [place] [phone] Rhoda Choudhary MD PhD Conjunctival lesion (Primary Dx) 04/28/2024 Telephone [facility] Ophthalmology [address] [place] [phone] Stefano Rooney MD 04/25/2024 Telephone [facility] Ophthalmology [address] [facility] Outpatient Health 6th [place] [phone] Runnels, Stefano Wolf MD from Last 3 Months Surgical History Surgery Date Site/Laterality Comments SECTION SINUS SURGERY Medical History Medical History Date Comments Type 2 diabetes mellitus (HCC) Anxiety Polycystic ovary syndrome Asthma Family History Medical History Relation Name Comments Hypertension Father Hypertension Mother Relation Name Status Comments Father Alive Mother Alive Social History Tobacco Use Types Packs/Day Years Used Date Smoking Tobacco: Never Smokeless Tobacco: Never Alcohol Use Standard Drinks/Week Comments Not Currently 0 (1 standard drink = 0.6 oz pur e alcohol) AUDIT-C Answer Date Recorded Frequency of Alcohol Consumption Never 01/13/2019 Average Number of Drinks Not on file 019 Frequency of Binge Drinking Not on file 12/23 PHQ-2 Answer Date Recorded PHQ-2 Total Score (If total score is 3 or more points, staff should administer the PHQ-9) 1 12/15/2019 Comments Unknown Sex and Gender Information Value Date Recorded Sex Assigned at Not on file Legal Sex Female 10:21 AM CDT Gender Identity Not on file Sexual Orientation Not on file Obstetrics History Last Filed Vital Signs Vital Sign Reading Time Taken Comments Blood Pressure 122/78 03/11/2024 1:16 PM GAS TRANSFER OPERATOR Pulse 66 03/11/2024 1:16 PM GAS TRANSFER OPERATOR Temperature - - Respiratory Rate 16 12/15/2019 1:41 PM CDT Oxygen Saturation - - Inhaled Oxygen Concentration - - Weight 74.8 kg (165 lb) 03/11/2024 1:16 PM GAS TRANSFER OPERATOR Height 170.2 cm (5' 7 ) 03/11/2024 1:16 PM GAS TRANSFER OPERATOR Body Mass Index 25.84 03/11/2024 1:16 PM GAS TRANSFER OPERATOR Plan of Treatment Upcoming Encounters Date Type Department Care Team (Latest Contact Info) Description 08/05/2024 12:15 PM CDT Hospital Encounter [facility] Operating Room [address] [facility] [place] [phone] Rhoda Choudhary MD PhD [address] [place] [address] 08/05/2024 12:15 PM CDT - 08/05/2024 1:30 PM CDT Surgery [facility] Operating Room [address] [facility] [place] [phone] Rhoda Choudhary MD PhD [address] [place] [address] CONJUNCTIVAL BIOPSY - left eye Scheduled Procedures Name Priority Associated Diagnoses Date/Ti me TRANSPLANT CORNEA Unspecified disorder of conjunctiva 08/05/2024 12:15 PM CDT GRAFT CORNEAL AMNIOTIC MEMBRANE Unspecified disorder of conjunctiva 08/05/2024 12:15 PM CDT Health Maintenance Due Date Last Done Comments Cervical Cancer Screening 1990 Hepatitis C Screening 1990 Dilated Eye Exam 1990 Varicella Vaccines (1 of 2 - 13+ 2-dose series) 2003 Hepatitis B Screening 2008 Regular Well Visit/Exam 18-64 2008 Pneumococcal vaccine <65 (1 of 2 - PCV) 2009 Lipid Panel 01/14/2020 01/13/2019 Albumin Creatinine Ratio, Urine 01/19/2020 9 eGFR 01/19/2020 01/18/2019 Hemoglobin A1C 06/16/2020 12/15/2019, 04/24, 01/13/2019, Additional history exists Depression Screening 12/14/2020 12/15/2019, 05/19/2019, 02/10/2019 Foot Exam 12/14/2020 12/15/2019, 04/24, 02/10/2019, Additional history exists Covid-19 Vaccine (2023-2 5 season) 2023 06/10/2020, 05/13/2020 Influenza Vaccine (#1) 2023 , 01/12/2020, 04/23/2012 DTaP/Tdap/Td Vaccine (2 - Td or Tdap) 10/27/2027 10/26/2017, 04/23/2008 HPV Vaccines Completed 06/01/2023, 05/2022, 10/25/2022 Procedures Procedure Name Priority Date/Time Associated Diagnosis Comments SLIT LAMP PHOTOGRAPHY - OS - LEFT EYE Routine 05/16/2024 11:01 AM GAS TRANSFER OPERATOR Conjunctival lesion POCT HEMOGLOBIN A1C Routine 12/15/2019 1 :51 PM CDT Type 2 diabetes mellitus with hyperglycemia, without long-term current use of insulin (HCC) COMPREHENSIVE METABOLIC PANEL Routine 01/18/2019 7:18 AM CDT Type 2 diabetes mellitus with hyperglycemia, without long-term current use of insulin (HCC) Morbid obesity with BMI of 45.0-49.9, adult ([facility]) ALBUMIN CREATININE RATIO, URINE Routine 01/18/2019 7:18 AM CDT Type 2 diabetes mellitus with hyperglycemia, without long-term current use of insulin ([facility]) POCT LIPID PANEL Routine 01/13/2019 9:40 AM CDT Type 2 diabetes mellitus with hyperglycemia, without long-term current use of insulin ([facility]) from Last 3 Months or Most Recently Relevant to Health Maintenance Results * Slit Lamp Photography - OS - Left Eye (05/16/2024 11:01 AM GAS TRANSFER OPERATOR) Anatomical Region Laterality Modality Head Other Narrative 05/17/2024 11:08 AM GAS TRANSFER OPERATOR Baseline photo of nasal conjunctival lesion OS with melanotic and nonmelanotic components and multiple cysts us Rhoda Choudhary MD PhD OPHTH PHOTOGRAPHY Fin al Result * POCT hemoglobin A1c (12/15/2019 1:51 PM CDT) Hemoglobin A1C, POC 7.8 Blood specimen (specimen) 12/15/2019 1:51 PM CDT us Radha Valencia MD POINT OF CARE TEST ORDERABLES Final Result * Albumin Creatinine Ratio, Urine (01/18/2019 7:18 AM CDT) Creatinine, ur 143 20 - 275 mg/dL [facility] [place] Microalbumin, ur 1.2 See Note: mg/dL [facility] [place] Comment: Reference Range: Reference Range Not established Microalbumin/creat ratio 8 <30 mcg/mg creat [facility] - [place] Comment: The ADA defines abnormalities in albumin excretion as follows: Category Result (mcg/mg creatinine) Normal <30 Microalbuminuria 30-299 Clinical albuminuria > OR = 300 The ADA recommends that at least two of three specimens collected within a 3-6 month period be abnormal before considering a patient to be within a diagnostic category. Urine 01/18/2019 7:18 AM CDT 01/18/2019 7:21 AM CDT Narrative [facility] - 01/20/2019 11:37 AM CDT COLLECTION KIT GIVEN TO PATIENT. PATIENT ADVISED TO RETURN. Resulting Agency Comment Performing Organization Information: Site ID: [id number] Name: [employer] Address: [address] [place] [address] Director: Vahid Mendoza D.O., MPH [facility] Erik Valencia MD LAB URINE ORDERABLE S Final Result [facility] [place] * (ABNORMAL) Comprehensive metabolic panel (01/18/2019 7:18 AM CDT) Glucose 152(H) 65 - 99 mg/dL [facility] [place] Comment: Fasting reference interval For someone without known diabetes, a glucose value >125 mg/dL indicates that they may have diabetes and this should be confirmed with a follow-up test. BUN 16 7 - 25 mg/dL [facility] [place] Creatinine 0.72 0.50 - 1.10 mg/dL [facility] [place] eGFR NON-AFR. CZECH 114 > OR = 60 mL/min/1. 73m2 [facility] [place] EGFR 132 > OR = 60 mL/min/1. 73m2 [facility] [place] BUN/creat ratio NOT APPLICABLE 6 - 22 (calc) [facility] [place] Sodium 136 135 - 146 mmol/L [facility] [place] Potassium, pl 4.4 3.5 - 5.3 mmol/L [facility] [place] Chloride 105 98 - 110 mmol/L [facility] [place] CO2 19(L) 20 - 32 mmol/L [facility] [place] Calcium 9.3 8.6 - 10.2 mg/dL [facility] [place] Protein, sr 7.1 6.1 - 8.1 g/dL [facility] [place] Albumin 4.2 3.6 - 5.1 g/dL [facility] [place] GLOBULIN 2.9 1.9 - 3.7 g/dL (calc) [facility] [place] Alb/glob ratio 1.4 1.0 - 2.5 (calc) [facility] [place] Bilirubin, total 0.3 0.2 - 1.2 mg/dL [facility] [place] Alk phos 87 33 - 115 U/L [facility] [place] AST 41(H) 10 - 30 U/L [facility] [place] ALT (SGPT) 31(H) 6 - 29 U/L [facility] [place] Blood specimen (specimen) 01/18/2019 7:18 AM CDT 01/18/2019 7:21 AM CDT Narrative [facility] - 01/20/2019 11:37 AM CDT COLLECTION KIT GIVEN TO PATIENT. PATIENT ADVISED TO RETURN. Resulting Agency Comment Performing Organization Information: Site ID: [id number] Name: [employer] Address: [address] [place] [address] Director: Vahid Mendoza D.O., MPH Radha Valencia MD LAB BLOOD ORDERABLE S Final Result [facility] [place] * POCT lipid panel (01/13/2019 9:40 AM CDT) Cholesterol, POC 160 mg/dL HDL, POC 28 mg/dL Triglycerides, POC 238 mg/dL LDL Cholesterol POC 84 mg/dL Non-HDL Cholesterol, POC 132 mg/dL Cholesterol Total, POC 5.7 mg/dL Blood specimen (specimen) 01/13/2019 9:40 AM CDT us Radha Valencia MD POINT OF CARE TEST ORDERABLES Final Result from Last 3 Months or Most Recently Relevant to Health Maintenance Insurance [facility] Care Teams Cobbler Apprentice Relationship Specialty Start Date End Date No, Physician PCP - General 05/06/24 Joselyn Dupont MD [address] [place], [place] [address] [address] Family Medicine 09/07/23
--- OUTSIDE RECORDS SUMMARY | 2024-07-07 17:24 | XMS_ITS | Referral Summary ---
Author Organization [facility] Address [address] [place] [address] Phone Care Team Providers Care Customer Sales Consultant Name Role Phone Joselyn Dupont MD Unavailable [phone] No, Physician Primary Care Provider [phone] Encounters Date Type Department Care Team Description 05/16/2024 10:30 AM WELT SOLE LAYER Imaging Exam [facility] Ophthalmology [address] [place] [phone] Conjunctival lesion (Primary Dx) 05/16/2024 9:30 AM WELT SOLE LAYER Office Visit [facility] Ophthalmology [address] [place] [phone] Rhoda Choudhary MD PhD Conjunctival lesion (Primary Dx) 04/28/2024 Telephone [facility] Ophthalmology [address] [place] [phone] Stefano Rooney MD 04/25/2024 Telephone [facility] Ophthalmology [address] [place] [phone] Stefano Rooney MD from Last 3 Months Allergies No known active allergies Medications albuterol [...] long-term current use of insulin ([facility]) Take 1 tablet (500 mg total) by mouth 2 (two) times a day with meals 180 tablet 1 0 Active ACCU-CHEK AMARA PLUS METER miscIndications :Type 2 diabetes mellitus with hyperglycemia, without long-term current use of insulin ([facility]) Use to test glucose twice daily 1 each 0 Active Additional Information Patient not taking.Reported on 05/16/2024 ACCU-CHEK AMARA PLUS TEST STRP stripIndication s:Type 2 diabetes mellitus with hyperglycemia, without long-term current use of insulin ([facility]) Use to test glucose 2 times daily 200 each 1 0 Active Additional Information Patient not taking.Reported on 05/16/2024 lancets miscIndications :Type 2 diabetes mellitus with hyperglycemia, without long-term current use of insulin ([facility]) Accu-Chek Softclix lancet-- use to test glucose [...] mg total) by mouth daily Sample lot [id number] exp 12/21/2020 x 2 bxs=14 tablets 14 [...] every evening Active cyanocobalamin/ folic acid (vitamin X43-cdals acid) 500-400 mcg tablet Take 500 mcg [...] months Assessment & Plan (05/20/2019 10:28 AM WELT SOLE LAYER): Chronic, improving with treatment A1c today 6.5 [...] habits Assessment & Plan (05/20/2019 10:29 AM WELT SOLE LAYER): Chronic, unchanged Discussed about healthy lifestyle habits [...] Hirsutism Assessment & Plan (05/20/2019 10:29 AM WELT SOLE LAYER): Chronic , stable Recommend intensify healthy lifestyle [...] for hormonal regulation On Spironolactone for Hirsutism Social History Tobacco Use Types Packs/Day Years [...] Comments Blood Pressure 122/78 03/11/2024 1:16 PM WELT SOLE LAYER Pulse 66 03/11/2024 1:16 PM WELT SOLE LAYER Temperature - - Respiratory Rate 16 12/15/2019 1:41 PM CDT Oxygen Saturation - - Inhaled Oxygen Concentration - - Weight 74.8 kg (165 lb) 03/11/2024 1:16 PM WELT SOLE LAYER Height 170.2 cm (5' 7 ) 03/11/2024 1:16 PM WELT SOLE LAYER Body Mass Index 25.84 03/11/2024 1:16 PM WELT SOLE LAYER Plan of Treatment Upcoming Encounters Date Type Department Care Team (Latest Contact Info) Description 08/05/2024 12:15 PM CDT Hospital Encounter [facility] Operating [facility] [address] [facility] [place] [phone] Rhoda Choudhary MD PhD [address] [place], [place] [id number] 08/05/2024 12:15 PM CDT - 08/05/2024 1:30 PM CDT Surgery [facility] Operating Room [address] [facility] [place] [address] Rhoda Choudhary MD PhD [address] [place] [address] CONJUNCTIVAL BIOPSY - left eye Scheduled Procedures Name Priority Associated Diagnoses Date/Ti me TRANSPLANT CORNEA Unspecified disorder of conjunctiva 08/05/2024 12:15 PM CDT GRAFT CORNEAL AMNIOTIC MEMBRANE Unspecified disorder of conjunctiva 08/05/2024 12:15 PM CDT Procedures Procedure Name Priority Date/Time Associated Diagnosis Comments SLIT LAMP PHOTOGRAPHY - OS - LEFT EYE Routine 05/16/2024 11:01 AM WELT SOLE LAYER Conjunctival lesion POCT HEMOGLOBIN A1C Routine 12/15/2019 1 :51 PM CDT Type 2 diabetes mellitus with hyperglycemia, without long-term current use of insulin (HCC) COMPREHENSIVE METABOLIC PANEL Routine 01/18/2019 7:18 AM CDT Type 2 diabetes mellitus with hyperglycemia, without long-term current use of insulin (HCC) Morbid obesity with BMI of 45.0-49.9, adult (HCC) ALBUMIN CREATININE RATIO, URINE Routine 01/18/2019 7:18 AM CDT Type 2 diabetes mellitus with hyperglycemia, without long-term current use of insulin (HCC) POCT LIPID PANEL Routine 01/13/2019 9:40 AM CDT Type 2 diabetes mellitus with hyperglycemia, without long-term current use of insulin ([facility]) from Last 3 Months or Most Recently Relevant to Health Maintenance Results * Slit Lamp Photography - OS - Left Eye (05/16/2024 11:01 AM WELT SOLE LAYER) Anatomical Region Laterality Modality Head Other Narrative 05/17/2024 11:08 AM WELT SOLE LAYER Baseline photo of nasal conjunctival lesion OS with melanotic and nonmelanotic components and multiple cysts us Rhoda Choudhary MD PhD OPHTH PHOTOGRAPHY Fin al Result * POCT hemoglobin A1c (12/15/2019 1:51 PM CDT) Hemoglobin A1C, POC 7.8 Blood specimen (specimen) 12/15/2019 1:51 PM CDT Radha Valencia MD POINT OF CARE TEST ORDERABLES Final Result * Albumin Creatinine Ratio, Urine (01/18/2019 7:18 AM CDT) Creatinine, ur 143 20 - 275 mg/dL [facility] [place] Microalbumin, ur 1.2 See Note: mg/dL [facility] [place] Comment: Reference Range: Reference Range Not established Microalbumin/creat ratio 8 <30 mcg/mg creat [facility] [place] Comment: The ADA defines abnormalities in albumin [...] Agency Comment Performing Organization Information: Site ID: [place] Name: [email or web address] Address: [address] [facility] [place] [address] Director: Vahid Mendoza D.O., MPH Radha Valencia MD LAB URINE ORDERABLE S Final Result [facility] [place] * (ABNORMAL) Comprehensive metabolic panel (01/18/2019 7:18 AM CDT) Glucose 152(H) 65 - 99 mg/dL [facility] [place] Comment: Fasting reference interval For someone without known diabetes, a glucose value >125 mg/dL indicates that they may have diabetes and this should be confirmed with a follow-up test. BUN 16 7 - 25 mg/dL [facility] [place] Creatinine 0.72 0.50 - 1.10 mg/dL [facility] [place] eGFR NON-AFR. CITIZEN OF [place] 114 > OR = 60 mL/min/1. 73m2 [facility] [place] EGFR 132 > OR = 60 mL/min/1. 73m2 [facility] [place] BUN/creat ratio NOT APPLICABLE 6 - 22 (calc) [facility] [place] Sodium 136 135 - 146 mmol/L [facility] [place] Potassium, pl 4.4 3.5 - 5.3 mmol/L [facility] [place] Chloride 105 98 - 110 mmol/L [facility] [place] CO2 19(L) 20 - 32 mmol/L [facility] [place] Calcium 9.3 8.6 - 10.2 mg/dL [facility] [place] Protein, sr 7.1 6.1 - 8.1 g/dL [facility] [place] Albumin 4.2 3.6 - 5.1 g/dL [facility] [place] GLOBULIN 2.9 1.9 - 3.7 g/dL (calc) [facility] [place] Alb/glob ratio 1.4 1.0 - 2.5 (calc) [facility] [place] Bilirubin, total 0.3 0.2 - 1.2 mg/dL [facility] [place] Alk phos 87 33 - 115 U/L [facility] [place] AST 41(H) 10 - 30 U/L [facility] [place] ALT (SGPT) 31(H) 6 - 29 U/L [facility] [place] Blood specimen (specimen) 01/18/2019 7:18 AM CDT 01/18/2019 7:21 AM CDT Narrative [facility] - 01/20/2019 11:37 AM CDT COLLECTION KIT GIVEN TO PATIENT. PATIENT ADVISED TO RETURN. Resulting Agency Comment Performing Organization Information: Site ID: [place] Name: [facility] Address: [address] [place] [address] Director: Vahid Mendoza D.O., MPH us Radha Valencia MD LAB BLOOD ORDERABLE S Final Result [facility] [place] * POCT lipid panel (01/13/2019 9:40 AM CDT) Cholesterol, POC 160 mg/dL HDL, POC 28 mg/dL Triglycerides, POC 238 mg/dL LDL Cholesterol POC 84 mg/dL Non-HDL Cholesterol, POC 132 mg/dL Cholesterol Total, POC 5.7 mg/dL Blood specimen (specimen) 01/13/2019 9:40 AM CDT Radha Valencia MD POINT OF CARE TEST ORDERABLES Final Result from Last 3 Months or Most Recently Relevant to Health Maintenance Insurance [address] [place] [id number] Care Teams Customer Sales Consultant Relationship Specialty Start Date End Date No, Physician PCP - General 05/06/24 Joselyn Dupont MD [address] [place] [address] [facility] 09/07/23
--- OUTSIDE RECORDS SUMMARY | 2024-07-07 17:24 | XMS_ITS | Encounter Summary ---
Author Organization [facility] Address [address] [place] [address] Care Team Providers Care Food Mixer Assembler Name Role Phone Joselyn Dupont MD Primary Care Provider [phone] Encounter Details Date Type Department Care Team (Late st Contact Info) Description 09/28/2018 Abstract SFL CONVERSION [address] [place] [address] , Generic Conversion, Social History Tobacco Use Types Packs/Day Years Used Date Smoking Tobacco: Never Assessed Comments Unknown Sex and Gender Information Value Date Recorded Sex Assigned at Female 05/30/2024 10:22 AM BILLING MANAGER Legal Sex Female 5:53 PM BILLING MANAGER Gender Identity Not on file Sexual Orientation Not on file documented as of this encounter Plan of Treatment Not on file documented as of this encounter Visit Diagnoses Not on filedocumented in this encounter Care Teams Food Mixer Assembler Relationship Specialty Start Date End Date Joselyn Dupont MD [address] [place] [id number] PCP - General FAMILY PRACTICE 06/15/20 documented as of this encounter
== END 2024-07-07 14:40 | disposition home or self-care (01) ==
PROVIDERS: Anesthesiology; PCP Physician Assistant; Visit Provider Obstetrics & Gynecology
DX: Z01.818 Encounter for other preprocedural examination (principal); N92.6 Irregular menstruation, unspecified; E11.9 Type 2 diabetes mellitus without complications
CPT/HCPCS: 36415; 80048; 85014; 85018

== ENCOUNTER 2024-07-11 00:24 | Day surgery (SDC) | payer OTHER, SELFPAY ==
[2024-07-02 11:36] VITALS: BMI 25.4
--- NOTE | 2024-07-02 11:43 | PC.NURSE ---
Report to the Outpatient Waiting Room, entrance under the green pavilion located off [facility], at time _1015_ on date _[id number]_. Planned Procedure Time: _1215_.? Time changes happen often and if your time is changed the preop area will call you the afternoon before. - You and your visitor will be asked to self-screen and do not enter if you have any COVID symptoms. Please call surgeon if you need to reschedule. - A mask is optional within the hospital at this time. Patients may have clear liquids (water, carbonated beverages, clear teas, apple juice) until 3 hours prior to surgery with a maximum of 20 ounces. - No food from midnight until time of surgery and no smoking, or chewing tobacco (or any form of nicotine). No chewing gum, candy or mints. Take only the following medications with a SIP of water on the morning of surgery: ___Levothyroxine DO NOT STOP ANY OF YOUR OTHER PRESCRIPTION MEDICATIONS PRIOR TO SURGERY EXCEPT THE FOLLOWING Hold all vitamins and supplements for 3 days per anesthesiologist. Medications to discontinue per physician Aretha is holding Monjaro as instructed by 's office with last dose taken 06-23-2024 Date to take last dose Please no make-up, nail serbian, hairspray, perfume, deodorant, or body powder the day of surgery.? No jewelry (including any body piercings) or valuables the day of surgery, leave them at home.? Please take a shower or bath the night before, or the morning of, surgery with an antibacterial soap.? Wear comfortable, loose fitting clothing.? - Jewelry must be removed prior to entering the operating room.? Rings and piercings that are not removed may be cut off. - The hospital will not accept responsibility for valuables.? - Please leave all valuables, including medications, at home the day of surgery. If you are going home after surgery, a licensed driver license technician must drive you home.? - NO public transportation without another adult if you receive anesthesia. - We recommend that an adult stay with you for 24 hours following discharge. - We also recommend that you do not drive, make important decision, drink alcoholic beverages, or take any drugs that were not prescribed by your health care provider for at least 24 hours after your discharge time. Follow any additional instructions given to you from your surgeon. Telephone instructions given to __Aretha__and asked if any additional questions and then verbalized understanding. Patient advised to call surgeon office or pre surgery nurse liaison [phone] if any additional questions.
--- NOTE | 2024-07-08 12:53 | PM.IMHP ---
H&P: HPI History of Present Illness Date/Time: 07/08/24 12:53 Chief Complaint: Excessive Narrative: A 34-year-old 3 para 2 admitted for hysteroscopy/dilatation curettage secondary to continuous irregular bleeding. She is nonsmoker she has been on oral contraceptives and she continues to have heavy bleeding. Risks and benefits reviewed in great detail. She received the [facility] handouts entitled hysteroscopy as well as dilatation curettage. She asked to proceed. She had all questions answered Review of Systems Constitutional: Constitutional: Reports as per HPI and Reports no additional constitutional complaints Eyes: Eyes: Reports as per HPI and Reports no additional eye complaints ENT: Reports system reviewed and no additional complaints, except as documented and Reports as per HPI Cardiovascular: Cardiovascular: Reports as per HPI and Reports no additional cardiovascular complaints Respiratory: Respiratory: Reports as per HPI and Reports no additional respiratory complaints Gastrointestinal: Gastrointestinal: Reports as per HPI and Reports no additional gastrointestinal complaints Genitourinary: Genitourinary: Reports as per HPI Musculoskeletal: Musculoskeletal: Reports no additional musculoskeletal complaints and Reports as per HPI Integumentary/Breasts: Skin/Breast: Reports system reviewed and no additional complaints, except as docu and Reports as per HPI Neurologic: Reports system reviewed and no additional complaints, except as documented and Reports as per HPI Psychiatric: Psychiatric: Reports no additional psychiatric complaints and Reports as per HPI Endocrine: Endocrine: Reports no additional endocrine complaints and Reports as per HPI Hematologic/Lymphatic: Hematologic/Lymphatic: Reports no additional hematologic/lymphatic complaints and Reports as per HPI Allergic/Immunologic: Allergic/Immunologic: Reports no additional allergic/immunologic complaints and Reports as per HPI [facility] Past Medical History Medical History Headache Asthma Anxiety Type 2 diabetes mellitus Surgical History Surgical History H/O gastric sleeve (~2020) H/O rhinoplasty (~2011) H/O sinus surgery History of (~2015) Family History Family History Father Asthma Diabetes mellitus Hypertension Depression Anxiety Mother Asthma Hypertension Social History Social History Smoking status: Never smoker Alcohol intake: never Substance use: never Substance use type: does not use Lack of Transportation: No Lack of Food: Never True Current Housing: I Have Housing Concerned About Future Housing: No Difficulty Paying Gas/Electric Bills: No Difficulty Paying for Meds: No Currently Unemployed: No Education: Master's Degree or Higher Difficulty w/ Childcare or Family Care: No Living arrangements: with family Occupation/Education: occupation Additional occupation/education comments: [employer] Gender identity (if verbalized by the patient): Female Spiritual care concerns: No Agree to blood products: Yes Meds Home Medications and Allergies Home Medications ?Medication ?Instructions ?Recorded ?Confirmed ?Type sertraline 100 mg tablet 150 mg PO DAILY 05/24/19 07/02/24 History albuterol sulfate 90 mcg/actuation 2 puff inhalation PRN 06/08/19 07/02/24 History aerosol inhaler (ProAir HFA) alprazolam 0.5 mg tablet 0.5 mg PO PRN 06/08/19 07/02/24 History minocycline 100 mg capsule 100 mg PO BID 09/15/22 07/02/24 History norgestimate 0.25 mg-ethinyl 1 tablet PO DAILY 09/15/22 07/02/24 History estradiol 35 mcg tablet (Sprintec (28)) folic acid 1 mg tablet 1 mg PO DAILY 07/02/24 07/02/24 History levothyroxine 50 mcg tablet 50 mcg PO DAILY 07/02/24 07/02/24 History loratadine 10 mg tablet (Claritin) 10 mg PO DAILY 07/02/24 07/02/24 History tirzepatide 12.5 mg/0.5 mL 12.5 mg subcut WEEKLY 07/02/24 07/02/24 History subcutaneous pen injector (Mounjaro) Allergies Allergy/AdvReac Type Severity Reaction Status Date / Time No Known Allergies Allergy Verified 07/02/24 11:32 Exam Const: General: cooperative, healthy appearing, comfortable and well groomed Nutritional Appearance: average body habitus Orientation/consciousness: oriented to person, oriented to place and oriented to time HENMT: Head: normal to inspection Resp: Effort & Inspection: normal respiratory effort Cardio: Rate: regular rate Rhythm: regular rhythm Heart sounds: S1 normal heart sound present and S2 normal heart sound present GI: Inspection: normal to inspection Auscultation: normal bowel sounds : External Female Exam: normal external appearance Speculum Exam - Vagina: normal appearance of the vagina Speculum Exam - Cervix: normal appearance of the cervix Bimanual exam- vagina & uterus: soft Bimanual Exam- Adnexa, other: normal adnexae Assessment and Plan Assessment and plan (1) Excessive bleeding: Code(s): R58 - Hemorrhage, not elsewhere classified Status: Acute Plan Proceed with hysteroscopy/dilatation curettage
--- OUTSIDE RECORDS SUMMARY | 2024-07-11 00:26 | XMS_ITS | Clinical Summary ---
Author Organization [facility] Address [address] [place] [address] Care Team Providers Care Land Mobile Radio Technician Name Role Phone Joselyn Dupont MD Primary Care Provider [phone] Allergies No known active allergies Medications albuterol [...] Sex Assigned at Female 05/30/2024 10:22 AM CLASSIFICATION CASE MANAGER Legal Sex Female 5:53 PM CLASSIFICATION CASE MANAGER Gender Identity Not on file Sexual [...] patient's age to complete this topic Insurance [facility] [employer] [address] [address] Care Teams Land Mobile Radio Technician Relationship Specialty Start Date End Date Joselyn Dupont MD [address] [place] [address] PCP - General FAMILY PRACTICE 06/15/20
--- OUTSIDE RECORDS SUMMARY | 2024-07-11 00:26 | XMS_ITS | Encounter Summary ---
Author Organization [facility] Address [address] [place] [address] Care Team Providers Care Solderer Barrel Ribs Name Role Phone Unavailable Primary Care Provider Unavailabl e Encounter Details Date Type Department Care Team (Late st Contact Info) Description 07/09/2024 External Device Data [facility] ABSTRACTION Provider, Abstract NO ADDRESS ON FILE Social History Tobacco Use Types Packs/Day Years [...]
--- OUTSIDE RECORDS SUMMARY | 2024-07-11 00:26 | XMS_ITS | Clinical Summary ---
Author Organization [facility] Address [address] [place] [address] Care Team Providers Care Customer Support Assistant Name Role Phone Unavailable Primary Care Provider [...] days. 2 mL 5 04/09/2024 5:54 PM DECK ENGINE OPERATOR 4 Active tirzepatide (Mounjaro) 15 mg/0.5 mL Pen Injector Inject 0.5 mL (15 mg) by subcutaneous injection every week as directed 2 mL 5 06/14/2024 9:29 AM DECK ENGINE OPERATOR 5 Active Encounters Date Type Department Care Team Description 07/09/2024 External Device Data [facility] ABSTRACTION Provider, Abstract 07/09/2024 External Device Data [facility] ABSTRACTION Provider, Abstract 06/28/2024 External Device Data [facility] ABSTRACTION Provider, [...] of 3 - 19+ 3-dose series) 2009 PAP SMEAR 2011 CERVICAL CANCER SCREENING 2020 HPV/Cotest 2020 PAP SMEAR 2020 INFLUENZA VACCINE (#1) 2023 HPV VACCINES [...]
--- OUTSIDE RECORDS SUMMARY | 2024-07-11 00:26 | XMS_ITS | Encounter Summary ---
Author Organization [facility] Address [address] [place] [address] Care Team Providers Care Corporate Financial Analyst Name Role Phone Unavailable Primary Care Provider [...]
--- OUTSIDE RECORDS SUMMARY | 2024-07-11 00:26 | XMS_ITS | Encounter Summary ---
Author Organization [facility] Address [address] [place] [address] Care Team Providers Care Railway Signal Electrician Name Role Phone Joselyn Dupont MD Primary Care Provider [phone] Encounter Details Date Type Department Care Team (Late st Contact Info) Description 09/28/2018 Abstract SFL CONVERSION [address] [place] [address] , Generic Conversion, Social History Tobacco Use Types Packs/Day Years Used Date Smoking Tobacco: Never Assessed Comments Unknown Sex and Gender Information Value Date Recorded Sex Assigned at Female 05/30/2024 10:22 AM JUVENILE CORRECTIONAL OFFICER Legal Sex Female 5:53 PM JUVENILE CORRECTIONAL OFFICER Gender Identity Not on file Sexual Orientation Not on file documented as of this encounter Plan of Treatment Not on file documented as of this encounter Visit Diagnoses Not on filedocumented in this encounter Care Teams Railway Signal Electrician Relationship Specialty Start Date End Date Joselyn Dupont MD [address] [place] [id number] PCP - General FAMILY PRACTICE 06/15/20 documented as of this encounter
--- NOTE | 2024-07-11 06:09 | WPDHPUPDATE1 ---
History and Physical Update Update Date/Time: 07/11/24 06:09 History and Physical has been reviewed, including an updated exam of the patient. There are NO changes in the patient's condition. Risks, benefits, and alternatives have been discussed and questions answered. Patient agrees to proceed with procedure.
[2024-07-11 10:15] VITALS: BP 123/82; PULSE 60; RESP 16; TEMP 37.2; O2SAT 100
[2024-07-11] MEDS: LACTATED RINGERS 1,000 ML 30 ML IV CONT (10:45)
[2024-07-11] MEDS: ACETAMINOPHEN 500 MG TABLET 1000 MG PO (10:50)
[2024-07-11 11:00] LABS: Glucose Point of Care 71 mg/dl (65-105)
[2024-07-11 11:39] LABS: BEDSIDEPREGUCG Negative (Negative)
--- NOTE | 2024-07-11 12:00 | P.PNAN_ITS ---
Anes - Initial Pre Proc Eval Procedure: Operation Date: 07/11/24 12:15 Proposed Procedures p Hysteroscopy, Dilation and Curettage - Sebas Askew MD Date/Time: 07/11/24 12:00 Surgeon: Sebas Askew MD Pre Op Diagnosis: pelvic pain, heavy bleeding Patient Data Age: 34 Gender: F Height: 1.73 m Weight: 77.5 kg Last Vital Signs Temp 37.2 C 07/11/24 10:15 Pulse 60 07/11/24 10:15 Resp 16 07/11/24 10:15 BP 123/82 07/11/24 10:15 Pulse Ox 100 07/11/24 10:15 O2 Del Method Room Air 07/11/24 10:15 Allergies Allergy/AdvReac Type Severity Reaction Status Date / Time No Known Allergies Allergy Verified 07/11/24 11:01 Home Medications ?Medication ?Instructions ?Recorded ?Confirmed ?Type sertraline 100 mg tablet 150 mg PO DAILY 05/24/19 07/11/24 History albuterol sulfate 90 mcg/actuation 2 puff inhalation PRN 06/08/19 07/02/24 History aerosol inhaler (ProAir HFA) alprazolam 0.5 mg tablet 0.5 mg PO PRN 06/08/19 07/02/24 History minocycline 100 mg capsule 100 mg PO BID 09/15/22 07/02/24 History norgestimate 0.25 mg-ethinyl 1 tablet PO DAILY 09/15/22 07/11/24 History estradiol 35 mcg tablet (Sprintec (28)) folic acid 1 mg tablet 1 mg PO DAILY 07/02/24 07/11/24 History levothyroxine 50 mcg tablet 50 mcg PO DAILY 07/02/24 07/11/24 History loratadine 10 mg tablet (Claritin) 10 mg PO DAILY 07/02/24 07/11/24 History tirzepatide 12.5 mg/0.5 mL 12.5 mg subcut WEEKLY 07/02/24 07/02/24 History subcutaneous pen injector (Mounjaro) hydrocodone 5 mg-acetaminophen 325 1 tablet PO Q4H PRN pain #20 tabs 07/11/24 Rx mg tablet Laboratory Tests 07/11/24 07/11/24 10:25 10:33 POC Capillary Glucose 71 mg/dl (65-105) POC Urine HCG, Qual Negative (Negative) Patient hx anesthesia problems: post op nausea/vomiting Family hx anesthesia problems: none Results Review: All pre-operative results and documents have been reviewed as part of the pre- operative evaluation. [facility] Past Medical History Medical History Headache Asthma Anxiety Type 2 diabetes mellitus Surgical History Surgical History H/O gastric sleeve (~2020) H/O rhinoplasty (~2011) H/O sinus surgery History of (~2015) Family History Family History Father Asthma Diabetes mellitus Hypertension Depression Anxiety Mother Asthma Hypertension Social History Social History Smoking status: Never smoker Alcohol intake: never Substance use: never Substance use type: does not use Lack of Transportation: No Lack of Food: Never True Current Housing: I Have Housing Concerned About Future Housing: No Difficulty Paying Gas/Electric Bills: No Difficulty Paying for Meds: No Currently Unemployed: No Education: Master's Degree or Higher Difficulty w/ Childcare or Family Care: No Living arrangements: with family Occupation/Education: occupation 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 Gender identity (if verbalized by the patient): Female Spiritual care concerns: No Agree to blood products: Yes Anes - Eval Final PreProcedure Day of Procedure 07/11/24 12:00 Patient weight: overweight Heart: regular rate and rhythm Lungs: clear to auscultation Airway: Mallampati scale class II Neurological: alert and oriented Last oral intake: >/= 8 hours ASA classification: II Emergent: no Anesthetic plan: proceed Anesthesia type and monitoring: general GIVS and standard monitoring Results Review: All pre-operative results and documents have been reviewed as part of the pre- operative evaluation. Informed Consent: The patient's anesthetic plan and its attendant risks and benefits were discussed with the patient/family/POA. Questions were solicited and answers provided to the satisfaction of the patient/family/POA.
[2024-07-11] MEDS: LIDOCAINE 1% LOCAL INJ 10 ML VIAL INFILTRATE (12:48)
--- NOTE | 2024-07-11 13:01 | W.PM.PROC2 ---
Procedure Note - Detailed Date of Procedure 07/11/24 Pre-op Diagnosis pelvic pain, heavy bleeding Post-op Diagnosis Same Procedure Performed Hysteroscopy/dilatation curettage Surgeon Sebas Askew MD Anesthesia MAC and Local Indications 34-year-old female with the excessive heavy bleeding Findings Uterus sounded to 8cm. Thick irregular endometrial tissue but no evidence of pathologic finding Description of Procedure Patient was prepped draped in the normal sterile fashion placed in dorsal lithotomy position. Under excellent IV sedation weighted speculum placed in posterior fornix vagina. Anterior lip of cervix grasped with single-tooth tenaculum. Two-cc 1% xylocaine anesthesia placed at 2, 4, 8, 10:00 a.m. of the cervix. Uterus sounded to 8cm. Serial dilatation fragmented dilators performed followed by passage of 5mm visualizing hysteroscope using normal saline as visualizing medium thick irregular endometrial tissue was seen but no abnormalities uterus was scraped over the entire 360? until good grating sound was heard. Instruments withdrawn the patient went recovery in satisfactory condition. All sponge, needle, instrument counts were correct. There were no immediate complications Estimated Blood Loss 5 Drains No Packing No Pathology Yes Complications No immediate complications Condition Stable Disposition PACU
[2024-07-11 13:02] VITALS: BP 124/81; PULSE 63; RESP 16; O2SAT 100
[2024-07-11 13:17] LABS: Glucose Point of Care 68 mg/dl (65-105)
[2024-07-11 13:30] VITALS: BP 134/81; PULSE 57; RESP 16
[2024-07-11] MEDS: oxyCODONE HCL (*CRX) 5 MG TAB IR PO (13:32)
[2024-07-11 14:00] VITALS: BP 127/77; PULSE 62; RESP 16
== END 2024-07-11 14:09 | disposition home or self-care (01) ==
PROVIDERS: PCP Physician Assistant; Visit Provider Obstetrics & Gynecology
PROC: 0U5B8ZZ Destruction of Endometrium, Via Natural or Artificial Opening Endoscopic (ICD-10-PCS; CPT 58563; principal; 2024-07-11 12:15)
DX: N92.0 Excessive and frequent menstruation with regular cycle (principal); N84.0 Polyp of corpus uteri; R10.2 Pelvic and perineal pain; E11.9 Type 2 diabetes mellitus without complications
CPT/HCPCS: 58558; 36415; 80048; 82948; 85014; 85018; 88305; A9270; J1885; J2003; J2250; J2704; J3010; J7120

== ENCOUNTER 2024-07-20 09:36 | Emergency (ER) | payer OTHER, SELFPAY ==
--- NOTE | 2024-07-20 09:40 | ED.URI ---
HPI - URI/Sore Throat General Chief Complaint: Upper Respiratory Infection Stated Complaint: Sinus Infection Symptoms Time Seen by Provider: 07/20/24 10:00 Source: patient Mode of arrival: ambulatory Limitations: no limitations History of Present Illness HPI Narrative: Aretha is a 34-year-old female patient presenting to the clinic today with complaints of nasal congestion/sinus pressure x3 days. She reports she is blowing out green nasal drainage. No fevers, chills, body aches. States she overall does not feel well. Has been taking her allergy medicine and nasal spray. Related Data Home Medications ?Medication ?Instructions ?Recorded ?Confirmed ?Last Taken ?Type sertraline 100 mg tablet 150 mg PO DAILY 05/24/19 07/11/24 07/10/24 History albuterol sulfate 90 mcg/actuation 2 puff inhalation PRN 06/08/19 07/02/24 Unknown History aerosol inhaler (ProAir HFA) alprazolam 0.5 mg tablet 0.5 mg PO PRN 06/08/19 07/02/24 Unknown History minocycline 100 mg capsule 100 mg PO BID 09/15/22 07/02/24 Unknown History norgestimate 0.25 mg-ethinyl 1 tablet PO DAILY 09/15/22 07/11/24 07/10/24 History estradiol 35 mcg tablet (Sprintec (28)) folic acid 1 mg tablet 1 mg PO DAILY 07/02/24 07/11/24 07/08/24 History levothyroxine 50 mcg tablet 50 mcg PO DAILY 07/02/24 07/11/24 07/11/24 History loratadine 10 mg tablet (Claritin) 10 mg PO DAILY 07/02/24 07/11/24 07/10/24 History tirzepatide 12.5 mg/0.5 mL 12.5 mg subcut WEEKLY 07/02/24 07/02/24 06/23/24 History subcutaneous pen injector (Mounjaro) Allergies Allergy/AdvReac Type Severity Reaction Status Date / Time No Known Allergies Allergy Verified 07/20/24 10:14 Review of Systems Review of Systems: Pertinent positives per HPI. Patient denies any fever, chills, rash, headache, visual changes, dizziness, cough, shortness of breath, chest pain, palpitations, nausea, vomiting, diarrhea, constipation, abdominal pain, or any urinary issues. PMFSH Past Medical History Medical History Headache Asthma Anxiety Type 2 diabetes mellitus Surgical History Surgical History H/O gastric sleeve (~2020) H/O rhinoplasty (~2011) H/O sinus surgery History of (~2015) Family History Family History Father Asthma Diabetes mellitus Hypertension Depression Anxiety Mother Asthma Hypertension Social History Social History Smoking status: Never smoker Alcohol intake: never Substance use: never Substance use type: does not use Lack of Transportation: No Lack of Food: Never True Current Housing: I Have Housing Concerned About Future Housing: No Difficulty Paying Gas/Electric Bills: No Difficulty Paying for Meds: No Currently Unemployed: No Education: Master's Degree or Higher Difficulty w/ Childcare or Family Care: No Living arrangements: with family Occupation/Education: occupation Additional occupation/education comments: [employer] Gender identity (if verbalized by the patient): Female Spiritual care concerns: No Agree to blood products: Yes Comments At the time of my signature, I reviewed and agree with the nursing past medical, surgical, social, and family history. There is no relevant family history pertinent to the patient complaint. Exam Narrative: General: Well-developed, well nourished, in no apparent distress Head: Normocephalic, atraumatic Eyes: Pupils equally round and reactive to light bilaterally, EOM intact, sclera and conjunctive clear, no discharge, lids normal Ears: TMs intact and clear, ear canals clear, no drainage, grossly hearing normal. Nose: Nares patent, clear nasal discharge, moderate inflammation, ethmoid and maxillary sinus tenderness. Mouth: Oral pharynx without lesions or masses, good dentition, MMM. Neck: Supple, trachea midline, no enlargement of anterior or posterior cervical nodes, no thyroid masses or goiter palpable. Cardio: Regular rate and rhythm, s1 and s2 normal, no murmur appreciated. Resp: Clear to auscultation bilaterally, no rhonchi, rales, wheezing or rubs Course Course Emergency Course: Portions of this record may have been created with voice recognition software. Level of Care: Express Care Visit Vital Signs Vital signs: Vital signs reviewed MDM - URI/Sore Throat MDM Narrative Medical decision making narrative: At the time of visit patient is resting comfortably on the exam table. Patient appears to be nontoxic. Plan: I suspect patient has acute rhinosinusitis. No sign of bacterial infection. Prescription for prednisone was sent to the pharmacy. Supportive measures were discussed with the patient and they voiced understanding discharge instructions and agrees to treatment plan. Return precautions reviewed Differential Diagnosis Differential diagnosis: Likely upper respiratory infection, otitis media, sinusitis, viral infection, bronchitis, influenza, pharyngitis and other (COVID) Discharge Plan Discharge Clinical Impression: Acute rhinosinusitis Patient Disposition: Home, Self-Care Condition: Stable Instructions: Antibiotic Form, Rhinosinusitis (ED) Additional Instructions: Take prescription medications only as prescribed-prednisone Increase fluids and stay well hydrated Tylenol/motrin for pain/fever Flonase and OTC antihistamines as directed Vicks vapor rub to open sinuses Sinus rinses for congestion Cepacol spray, cough drops, throat lozenges, warm tea with honey/lemon, gargle salt water to soothe throat BRAT diet for diarrhea Clear liquids x 24 hours then advance as tolerated for nausea/vomiting Go to the ED if you develop a worsening in your condition- high fever not controlled by Tylenol or Motrin, dehydration, weakness, lethargy, shortness of breath, or chest pain. Follow up with your PCP in 3-5 days if symptoms persist. Patient Language: Chinese Prescriptions: New prednisone 20 mg tablet 40 mg PO DAILY 5 Days Qty: 10 0RF No Action alprazolam 0.5 mg tablet 0.5 mg PO PRN albuterol sulfate [ProAir HFA] 90 mcg/actuation HFA aerosol inhaler 2 puff INHALATION PRN sertraline 100 mg Tablet 150 mg PO DAILY Patient Comments: Says takes at HS norgestimate-ethinyl estradiol [Sprintec (28)] 0.25-35 mg-mcg tablet 1 tablet PO DAILY Patient Comments: Takes at HS minocycline 100 mg capsule 100 mg PO BID levothyroxine 50 mcg tablet 50 mcg PO DAILY folic acid 1 mg tablet 1 mg PO DAILY loratadine [Claritin] 10 mg tablet 10 mg PO DAILY Mounjaro 12.5 mg/0.5 mL pen injector 12.5 mg subcut WEEKLY Patient Comments: Mondays hydrocodone-acetaminophen 5-325 mg tablet 1 tablet PO Q4H PRN (Reason: pain) Qty: 20 0RF Follow-up/Referrals: PHYSICIAN,LOG STACKER OPERATOR [Primary Care Provider] - Time of Disposition: 10:27 Quality NIHSS Nursing Documentation ED NIHSS nursing documentation: reviewed/agree
[2024-07-20 09:58] VITALS: BP 111/95; PULSE 82; RESP 16; TEMP 36.7; O2SAT 100
[2024-07-20 10:29] LABS: EDCOVIDSCREEN Negative (Negative)
[2024-07-20 10:37] LABS: EDINFLUASCREEN Negative (Negative); EDINFLUBSCREEN Negative (Negative)
== END 2024-07-20 10:35 | disposition home or self-care (01) ==
PROVIDERS: Emergency Provider Nurse Practitioner Family
DX: J01.90 Acute sinusitis, unspecified (principal); Z20.822 Contact with and (suspected) exposure to COVID-19; E11.9 Type 2 diabetes mellitus without complications; Z79.85 Long-term (current) use of injectable non-insulin antidiabetic drugs; J45.909 Unspecified asthma, uncomplicated; F41.9 Anxiety disorder, unspecified; Z98.84 Bariatric surgery status
CPT/HCPCS: 87426; 87804; 99213; G0463

== ENCOUNTER 2024-10-27 07:28 | Outpatient (CLI) | payer OTHER, SELFPAY ==
--- OUTSIDE RECORDS SUMMARY | 2024-10-27 07:33 | XMS_ITS | Encounter Summary ---
Author Organization [facility] Address [address] [place] [id number] Care Team Providers Care Technical Analyst Name Role Phone Joselyn Dupont MD Primary Care Provider [phone] Encounter Details Date Type Department Care Team (Late st Contact Info) Description 09/28/2018 Abstract SFL CONVERSION [address] [place] [address] , Generic Conversion, Social History Tobacco Use Types Packs/Day Years Used Date Smoking Tobacco: Never Assessed Comments Unknown Sex and Gender Information Value Date Recorded Sex Assigned at Female 05/30/2024 10:22 AM [employer] Legal Sex Female 5:53 PM [employer] Gender Identity Not on file Sexual Orientation Not on file documented as of this encounter Plan of Treatment Not on file documented as of this encounter Visit Diagnoses Not on filedocumented in this encounter Care Teams Technical Analyst Relationship Specialty Start Date End Date Joselyn Dupont MD [address] [place] [id number] PCP - General FAMILY PRACTICE 06/15/20 documented as of this encounter
--- OUTSIDE RECORDS SUMMARY | 2024-10-27 07:33 | XMS_ITS | Referral Summary ---
Author Organization [facility] Address [address] [place] [address] Phone Care Team Providers Care Call Center Recruiter Name Role Phone Joselyn Dupont MD Unavailable [phone] Joselyn Dupont MD Primary Care Provider Encounters Date Type Department Care Team Description 09/12/2024 12:45 PM CDT Office Visit [facility] Ophthalmology [address] [place] [address] Outpatient Health [address] [place] [phone] Rhoda Choudhary MD PhD Conjunctival lesion (Primary Dx) 08/29/2024 2:00 PM CDT Office Visit [facility] Ophthalmology [address] [place] [address] [place] [phone] Rhoda Choudhary MD PhD Conjunctival lesion (Primary Dx) 08/26/2024 Telephone [facility] Ophthalmology [address] [place] [address] Rhoda Choudhary MD PhD Post-op Problem 08/13/2024 Orders Only [facility] Ophthalmology [address] [facility] 2nd [address], [address] [place] [address] Rhoda Choudhary MD PhD 08/13/2024 10:30 AM CDT Office Visit [facility] Ophthalmology [facility] Outpatient Health [address] [place] [phone] Rhoda Choudhary MD PhD Conjunctival lesion (Primary Dx) 08/06/2024 10:15 AM CDT Office Visit [facility] Ophthalmology [address] [facility] 6th [place] [phone] Rhoda Choudhary MD PhD Conjunctival lesion (Primary Dx) 08/05/2024 12:15 PM CDT - 08/05/2024 1:30 PM CDT Surgery [facility] Operating Room [address] [place] [address] Rhoda Choudhary MD PhD CONJUNCTIVAL BIOPSY - left eye 08/05/2024 12:15 PM CDT Anesthesia Event [facility] Operating Room [address] [place] [phone] Santiago Hannah MD Wilkinson, Christina A., NP 08/05/2024 10:13 AM CDT - 08/05/2024 1:36 PM CDT Hospital Encounter [facility] Operating Room [address] [place] [address] Rhoda Chouhdary MD PhD Unspecified disorder of conjunctiva Discharge Disposition: Discharge to home or self care from Last 3 Months Allergies No known active allergies Medications albuterol HFA (PROVENTIL HFA,VENTOLIN HFA,PROAIR HFA) 90 mcg/actuation inhaler Inhale 2 puffs every 4 (four) hours as needed for wheezing or shortness of breath Active minocycline (MINOCIN,DYNAC IN) 100 mg capsule Take 2 capsules (200 mg total) by mouth nightly 9 Active SPRINTEC, 28, 0.25-35 mg-mcg per tablet Take 1 tablet by mouth nightly 3 9 Active sertraline (ZOLOFT) 100 mg tablet Take 1.5 tablets (150 mg total) by mouth nightly 0 9 Active ALPRAZolam (XANAX) 0.5 mg tablet Take 1 tablet (0.5 mg total) by mouth 2 (two) times a day as needed for anxiety 0 Active rimegepant (Nurtec ODT) tablet,disinte grating Place 1 tablet (75 mg total) under the tongue once as needed (migraine) Active tirzepatide (MOUNJARO) 15 mg/0.5 mL pen injector injection Inject 0.5 mL (15 mg total) under the skin every 7 days Fridays Active levothyroxine (SYNTHROID) 50 mcg tablet Take 1 tablet (50 mcg total) by mouth conservation agent before breakfast Active folic acid (FOLVITE) 1 mg tablet Take 1 tablet (1 mg total) by mouth daily before breakfast Active loratadine (CLARITIN) 10 mg tablet Take 1 tablet (10 mg total) by mouth daily before breakfast Active acetaminophen (TYLENOL) 325 mg tablet Take 2 tablets (650 mg total) by mouth every 6 (six) hours as needed for pain Active doxycycline 100 mg tablet Take 1 tablet/capsule (100 mg total) by mouth 2 (two) times a day 5 Active fluconazole (DIFLUCAN) 150 mg tablet TAKE ONE TABLET BY MOUTH A ONE-TIME DOSE. MAY REPEAT DOSE IN 72 HOURS IF SYMPTOMS HAVE NOT COMPLETELY RESOLVED 5 Active fluticasone propionate (FLONASE) 50 mcg/actuation nasal spray 5 Active HYDROcodone-ac etaminophen (NORCO) 5-325 mg per tablet Take 1 tablet by mouth every 4 (four) hours as needed for pain 5 Active metroNIDAZOLE (METROGEL) 0.75 % (37.5mg/5 gram) vaginal gel INSERT 1 APPLICATORFUL VAGINALLY ONCE DAILY AT BEDTIME FOR 5 DAYS 5 Active nystatin ointment [address] (PROTONIX) 40 mg EC tablet 5 Active spironolactone (ALDACTONE) 50 mg tablet 5 Active neomycin-polym yxin-dexAMETHa sone (MAXITROL) 3.5mg/mL-10,00 0 unit/mL-0.1 % ophthalmic suspension Administer 1 drop into the left eye every 2 (two) hours while awake 5 mL 1 5 Active neomycin-polym yxin B-dexAMETHason e (MAXITROL) 3.5 mg/g-10,000 unit/g-0.1 % ointment Apply to left eye at night 3.5 g 11 5 Active Active Problems Problem Noted Date Diagnosed Date premature rupture of membranes (PPROM) with unknown onset of labor 08/13/2024 Overview (08/13/2024): +ROM at OSH, 10/16 SSE on admission +pooling, no active bleeding Pinkish tinged fluid overnight, will monitor closely Cervix closed per vis on admission ANCS 10/16- UDS, RT, GC/CT and urine culture negative Amnisure positive 10/17/17 GBSneg Latency abx S/p Mag Amp for GBS ppx NICU consulted Unspecified disorder of conjunctiva 05/20/2024 Post-op pain 09/15/2020 Type 2 diabetes mellitus without complication Type 2 diabetes mellitus wit h hyperglycemia, [...] months Assessment & Plan (05/20/2019 10:28 AM FIRE PROTECTION ENGINEER): Chronic, improving with treatment A1c today 6.5 [...] habits Assessment & Plan (05/20/2019 10:29 AM FIRE PROTECTION ENGINEER): Chronic, unchanged Discussed about healthy lifestyle habits [...] Hirsutism Assessment & Plan (05/20/2019 10:29 AM FIRE PROTECTION ENGINEER): Chronic , stable Recommend intensify healthy lifestyle [...] for hormonal regulation On Spironolactone for Hirsutism Chorioamnionitis in third trimester 11/03/2017 Anxiety 10/18/2017 Overview (08/13/2024): Mood stable Zoloft 150 mg daily Gastroesophageal reflux disease without esophagi tis 10/18/2017 Overview (08/13/2024): Pepcid daily Insulin controlled gestation al diabetes mellitus (GDM) in third trimester 10/18/2017 Overview (08/13/2024): Lantus 40/, metformin 1000 mg BID Fasting 101, 1 hr postprandials all >130 Will adjust insulin dose after discussion with team Plan for 3hr GTT 7-10 days after ANCS Mild intermittent asthma 10/18/2017 Overview (08/13/2024): Stable Albuterol prn 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 Monthly or less 08/05/2024 Q2: How many drinks containi ng alcohol do you have on a typical day when you are drinking? 1 or 2 08/05/2024 Q3: How often do you have si x or more drinks on one occasion? Never 08/05/2024 PHQ-2 Answer Date Recorded PHQ-2 Total Score (If total score is 3 or more points, staff should administer the PHQ-9) 1 12/15/2019 Personal Safety Answer Date Recorded Have you ever been in or are you currently in a harmful physical or emotional relationship or is someone making you feel afraid or unsafe? Denies 08/05/2024 Comments No Sex and Gender Information Value Date Recorded Sex Assigned at Not on file Legal Sex Female 10:21 AM CDT Gender Identity Not on file Sexual Orientation Not on file Last Filed Vital Signs Vital Sign Reading Time Taken Comments Blood Pressure 133/83 08/05/2024 1:25 PM CDT Pulse 75 08/05/2024 1:30 PM CDT Temperature 36.9 C (98.4 F) 08/05/2024 1:05 PM CDT Respiratory Rate 19 08/05/2024 1:30 PM CDT Oxygen Saturation 100% 08/05/2024 1:30 PM CDT Inhaled Oxygen Concentration - - Weight 74.5 kg (164 lb 4.8 oz) 08/05/2024 10:30 AM CDT Height 172.7 cm (5' 8) 08/05/2024 10:30 AM CDT Body Mass Index 24.98 08/05/2024 10:30 AM CDT Plan of Treatment Not on file Medical Devices Implanted Type Area Pricing Analyst Device Identifier Shelf Expiration Date Model / Serial / Lot [employer] Inc Amniograft 2.5x2cm Allograft Cryopreserved A [id number] Graft Ag-[id number] - [id number] - [id number] Implanted:Qty: 1 on 08/05/2024 by Rhoda Choudhary MD PhD at [facility] Left: Eye [employer] 01/09/2026 AG-[id number] / [id number] / [id number] Procedures Procedure Name Priority Date/Time Associated Diagnosis Comments POCT GLUCOSE DEVICE Routine 08/05/2024 1 :24 PM CDT SURGICAL PATHOLOGY Routine 08/05/2024 12:43 PM CDT Unspecified disorder of conjunctiva GRAFT CORNEAL AMNIOTIC MEMBRANE. 08/05/2024 12:15 PM CDT Unspecified disorder of conjunctiva Special Needs SUBconj block / 1 ea amniograft / tisseel TRANSPLANT CORNEA PENETRATING. 08/05/2024 12:15 PM CDT Unspecified disorder of conjunctiva Special Needs SUBconj block / 1 ea amniograft / tisseel POCT GLUCOSE DEVICE Routine 08/05/2024 12:13 PM CDT POCT GLUCOSE DEVICE Routine 08/05/2024 10:48 AM CDT POCT HCG, URINE Routine 08/05/2024 10:28 AM CDT POCT HEMOGLOBIN A1C Routine 12/15/2019 1 :51 [...] without long-term current use of insulin (HCC) from Last 3 Months or Most Recently Relevant to Health Maintenance Results * POCT glucose (08/05/2024 1:24 PM CDT) Glucose, POC 88 70 - 199 mg/dL Comment: Interpretive Data Glucose is assumed to be non-fasting. Fasting Glucose reference ranges are: 0 - 150 years: 70 mg/dL - 99 mg/dL Current interpretive data was last revised on 2014. POC Performer [id number] [facility] POC Device Number [id number] [facility] Blood 08/05/2024 1:24 PM CDT 08/05/2024 1:24 PM CDT us Rhoda Choudhary MD PhD LAB POCT ORDERABLES - DEVICE Final Result Performing Organization Address City/State/[facility] Co de Phone Number [email or web address] [id number] [facility] Department [place] [address] * Surgical pathology (08/05/2024 12:43 PM CDT) Tissue (Mass/Tumor/Lesio n) 08/05/2024 12:43 PM CDT Narrative PATHOLOGY [facility] - 08/08/2024 6:15 PM CDT EPIC results best viewed via link to PDF [facility] [place] [address] Note to Patients: This report may contain a detailed description of human tissue sent by a health care provider to the laboratory for pathologic evaluation. The content of this report is essential for diagnosis and may provide important critical findings. This information may be unfamiliar to patients to review without a medical professional present. It is advised that the patient review this report in the presence of a health care provider who can answer questions and explain the details. SURGICAL PATHOLOGY REPORT FINAL Patient Name: EDMUNDO SCHILLING Gender: F : 1990 (Age: 34) Address: [place] [address] [address] Hospital #: [id number] Taken:08/05/2024 Received:08/05/2024 Reported: 08/08/2024 Patient Type: BWC EP SAME [facility] Service: Ophthalmology Location: Physician(s): Rhoda Choudhary MD, PHD John Roth M.D. Diagnosis: Conjunctiva, left eye, excisional biopsy: - Epithelial inclusion cyst (see comment) [facility]/08/08/2024 18:15 By this signature, I attest that the above diagnosis is based upon my personal examination of the slides(and/or other material indicated in the diagnosis). Fco Portillo M.D. Report Electronically Reviewed and Signed Out By Fco Portillo M.D. 08/08/2024 18:15:52 Microscopic Description and Comment: Sections show a cystic space lined by non-keratinizing epithelium, appearing multi-lobulated in the plane of sectioning, with an empty lumen. One region of the lining appears as solid nests of epithelium without a visible lumen (perhaps related to the plane of sectioning). Within that region, there is focal epithelial degeneration, focal hemosiderin- laden macrophages, and lipid-laden macrophages with foreign-body giant cell reaction. MelanA-red immunostain highlights a normal-appearing population of melanocytes in the basal epithelial layer in the visualized portions of epithelium (with extensive artifactual tissue destruction noted on the immunostained slide). In summary, this is an epithelial inclusion cyst. The presence of hemosiderin and of lipid (presumably displaced) with associated granulomatous reaction is suggestive of prior trauma (perhaps minor) as the etiology. (The hemosiderin presumably accounts for the pigmented appearance that was noted clinically.) There is no evidence of a melanocytic proliferation. (The gross/histologic processing in this case was more involved as compared to a typical case, including on-edge preparation of multiple (5) separate pieces of tissue in HistoGel, with maintenance of orientation, with corresponding analysis of individually-oriented surgical margins, as opposed to simple bisection.) History: The patient is a 34-year-old female with unspecified disorder of conjunctiva. As per the clinical records, the patient began noticing a pigmented lesion of the left nasal bulbar conjunctiva about a year ago, with some enlargement and darkening since then. There is a past medical history of multiple benign dermatofibromas removed from the right side of her body, followed by Dermatology. On examination, there was a cystic component to the lesion. It measured 2.5 x 4.5 mm, with the edge closest to limbus being situated 2.5 mm posterior to the limbus. On the photograph, the horizontal dimension appears longer than the vertical dimension. Operative procedure: Conjunctival biopsy, left eye, with amniotic membrane graft. Specimen(s) Received: A: Left eye conjunctival lesion for biopsy: silk- superior; vicryl- limbus Gross Description: The specimen is received in a formalin-filled container labeled with the patient's identifiers and left eye conjunctival lesion for biopsy: Silk superior; Vicryl limbus. The specimen consists of a sandoval-brown piece of soft tissue measuring 8 mm horizontally by 6 mm vertically by 2 mm in thickness. The short, black suture is identified at the superior tip, while the long purple suture is identified along the inferior edge, closer to the presumed limbal edge as compared to the opposite edge. The sutures are now trimmed. The superior edge is now inked black, the limbal and inferior edges are now inked green, and the posterior (nasal) edge is now inked red. The nasal and temporal tips are embedded surgical margin down into HistoGel, while the main body of the lesion is bread-loafed into three pieces, embedded cut surface down into HistoGel, all with orientation preserved. Labeled A1. Jar 0. [facility]/08/06/2024 19:19 Gross Pathologist: Fco Portillo M.D. By this signature, I attest that the above diagnosis is based upon my personal examination of the slides(and/or other material). Addenda/Procedures Microscopic slide review and interpretation for this case was performed at [facility], Department of Surgical Pathology, [address] [facility], [place] [id number], [place] [address] IA # [id number] The performance characteristics of some immunohistochemical stains, fluorescence in-situ hybridization tests and immunophenotyping by flow cytometry cited in this report (if any) were determined by the Surgical Pathology and Flow Cytometry Departments at [facility] as part of an ongoing quality assurance intern program and in compliance with federally mandated regulations drawn from the Clinical Laboratory Improvement Act of 1988 (CLIA '88). Some of these tests rely on the use of analyte specific reagents and are subject to specific labeling requirements by the US Food and Drug Administration. Such diagnostic tests may only be performed in a facility that is certified by the Department of Health and Human Services as a high complexity laboratory under CLIA '88. The FDA has determined that such clearance or approval is not necessary. This test is used for clinical purposes. It should not be regarded as investigational or for research. Nevertheless, federal rules concerning the medical use of analyte specific reagents require that the following disclaimer be attached to the report: This test was developed and its performance characteristics determined by the Surgical Pathology and Flow Cytometry Departments of [facility]. It has not been cleared or approved by the U. S. Food and Drug Administration. IMAGES AND SCANNED DOCUMENTS, IF INCLUDED, ONLY VIEWABLE IN PDF VERSION OF REPORT Rhoda Choudhary MD PhD LAB PATHOLOGY ORDERAB LES Final Result PATHOLOGY [facility] * (ABNORMAL) POCT glucose (08/05/2024 12:13 PM CDT) Glucose, POC 67(L) 70 - 199 mg/dL Comment: Interpretive Data Glucose is assumed to be non-fasting. Fasting Glucose reference ranges are: 0 - 150 years: 70 mg/dL - 99 mg/dL Current interpretive data was last revised on 2014. POC Performer [id number] NELSY [facility]ARRENOW[facility] POC Device Number [id number] NELSY CARRENOWCH Blood 08/05/2024 12:1 3 PM CDT 08/05/2024 12:13 PM CDT Rhoda Choudhary MD PhD LAB POCT ORDERABLES - DEVICE Final Result NELSY WHITLEY [address] [facility] [place] [address] * POCT glucose (08/05/2024 10:48 AM CDT) Glucose, POC 72 70 - 199 mg/dL Comment: Interpretive Data Glucose is assumed to be non-fasting. Fasting Glucose reference ranges are: 0 - 150 years: 70 mg/dL - 99 mg/dL Current interpretive data was last revised on 2014. POC Performer [id number] [facility] POC Device Number [id number] [facility] Blood 08/05/2024 10:4 8 AM CDT 08/05/2024 10:48 AM CDT Rhoda Choudhary MD PhD LAB POCT ORDERABLES - DEVICE Final Result [facility] [address] [facility] [place] [address] * POCT hCG, urine (08/05/2024 10:28 AM CDT) HCG, ur, POC Negative Negative Lot Number [id number] QC Backgroud Clear Acceptable QC Control Line Acceptable Urine 08/05/2024 10:2 8 AM CDT Historical Provider POINT OF CARE TEST ORDERA BLES Final Result * POCT hemoglobin A1c (12/15/2019 1:51 PM CDT) Hemoglobin A1C, POC 7.8 Blood specimen (specimen) 12/15/2019 1:51 PM CDT Radha Valencia MD POINT OF CARE TEST ORDERABLES Final Result * Albumin Creatinine Ratio, Urine (01/18/2019 7:18 AM CDT) Creatinine, ur 143 20 - 275 mg/dL [facility] [place] Microalbumin, ur 1.2 See Note: mg/dL [facility] [place] Comment: Reference Range: Reference Range Not established Microalbumin/creat ratio 8 <30 mcg/mg creat [facility] [place] Comment: The ADA defines [...] Agency Comment Performing Organization Information: Site ID: [place] Name: [email or web address] Address: [address] [place] [address] Director: Vahid Mendoza D.O., MPH Radha Valencia MD LAB URINE ORDERABLE S Final Result [facility] [place] * (ABNORMAL) Comprehensive metabolic panel (01/18/2019 7:18 AM CDT) Glucose 152(H) 65 - 99 mg/dL [facility] [place] Comment: Fasting reference interval For someone without known diabetes, a glucose value >125 mg/dL indicates that they may have diabetes and this should be confirmed with a follow-up test. BUN 16 7 - 25 mg/dL [facility] [place] Creatinine 0.72 0.50 - 1.10 mg/dL [facility] [place] eGFR NON-AFR. NIGERIEN 114 > OR = 60 mL/min/1. 73m2 [facility] [place] EGFR 132 > OR = 60 mL/min/1. 73m2 [facility] [place] BUN/creat ratio NOT APPLICABLE [...] Agency Comment Performing Organization Information: Site ID: [place] Name: [email or web address] Address: [address] [facility] [place] [address] Director: Vahid Mendoza D.O., MPH us Radha Valencia MD LAB BLOOD ORDERABLE S Final Result [facility] [place] * POCT lipid panel (01/13/2019 9:40 [...] Most Recently Relevant to Health Maintenance Insurance [facility] Address: [place] [address] [facility] [place]: [place] [address] [place] [id number] Care Teams Call Center Recruiter Relationship Specialty Start Date End Date Joselyn Dupont MD [address] [place] [address] PCP - General Family Medicine 07/29/24 Joselyn Dupont MD [address] [place] [address] Family Medicine 09/07/23
--- OUTSIDE RECORDS SUMMARY | 2024-10-27 07:33 | XMS_ITS | Clinical Summary ---
Author Organization [facility] Address [address] [place] [address] Care Team Providers Care Mine Expert Name Role Phone Unavailable Primary Care Provider [...] days. 2 mL 5 04/09/2024 5:54 PM MACHINE SORTER 4 Active tirzepatide (Mounjaro) 15 mg/0.5 mL Pen Injector Inject 0.5 mL (15 mg) by subcutaneous injection every week as directed 2 mL 5 07/24/2024 3:23 PM CDT 5 Active tirzepatide (Mounjaro) 15 mg/0.5 mL Pen Injector Inject 0.5 mL (15 mg) by subcutaneous injection every 7 days. 2 mL 5 09/12/2024 6:20 PM CDT 5 Active fluconazole (DIFLUCAN) 150 mg tablet Take 1 tablet by mouth 1 time. May repeat dose in 72 hours if symptoms have not completely resolved. 2 Tablet 09/30/2024 10:54 AM CDT 5 Active Encounters Date Type Department Care Team Description 10/21/2024 External Device Data [facility] Provider, Abstract 10/14/2024 External Device Data [facility] Provider, Abstract 10/07/2024 External Device Data [facility] Provider, Abstract 09/11/2024 External Device Data [facility] Provider, Abstract 09/10/2024 External Device Data [facility] Provider, Abstract 09/09/2024 External Device Data [facility] Provider, Abstract 08/05/2024 External Device Data [facility] Provider, Abstract [...] of 3 - 19+ 3-dose series) 2009 HPV/Cotest (21-29) 2011 CERVICAL CANCER SCREENING 2020 HPV/Cotest (30-65) 2020 PAP SMEAR 2020 INFLUENZA VACCINE (#1) 2024 HPV VACCINES Aged Out No longer eligi ble based on patient's age to complete this topic Insurance RX [employer] Commercial RX [employer] Member Subscriber Plan / Payer (Ef fective for All Dates) Name:Aretha Schilling Relation to Subscriber:Self Name:Arehta Schilling Payer ID:Not on file Group ID:[id number] Type:RX Commercial Address: [address]
--- OUTSIDE RECORDS SUMMARY | 2024-10-27 07:33 | XMS_ITS | Clinical Summary ---
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 HELPER): Chronic, improving with treatment A1c today 6.5 [...] habits Assessment & Plan (05/20/2019 10:29 AM POLE PEELING MACHINE OPERATOR HELPER): Chronic, unchanged Discussed about healthy lifestyle habits [...] Hirsutism Assessment & Plan (05/20/2019 10:29 AM POLE PEELING MACHINE OPERATOR HELPER): Chronic , stable Recommend intensify healthy lifestyle [...] in third trimester 10/18/2017 Overview (08/13/2024): Lantus 40/28, metformin 1000 mg BID Fasting 101, 1 hr postprandials all >130 Will adjust insulin dose after discussion with team Plan for 3hr GTT 7-10 days after ANCS Mild intermittent asthma 10/18/2017 Overview (08/13/2024): Stable Albuterol prn Vanishing twin syndrome 10/18/2017 Overview (08/13/2024): Borderline LGA growth Encounters Date Type Department Care Team Description 09/12/2024 12:45 PM CDT Office Visit [facility] Ophthalmology [address] [phone] Rhoda Choudhary MD PhD Conjunctival lesion (Primary Dx) 08/29/2024 2:00 PM CDT Office Visit [facility]hthalmology [address] [phone] Rhoda Choudhary MD PhD Conjunctival lesion (Primary Dx) 08/26/2024 Telephone [facility]hthal[facility] [address] [place] [address] Rhoda Choudhary MD PhD Post-op Problem 08/13/2024 10:30 AM CDT Office Visit [facility] [address] [phone] Rhoda Choudhary MD PhD Conjunctival lesion (Primary Dx) 08/13/2024 Orders Only [facility]hthalmology [address], [address] [place] [phone] Rhoda Choudhary MD PhD 08/06/2024 10:15 AM CDT Office Visit [facility] Ophthalmology [facility] [address] [phone] Rhoda Choudhary MD PhD Conjunctival lesion (Primary Dx) 08/05/2024 12:15 PM CDT - 08/05/2024 1:30 PM CDT Surgery [facility] Operating Room [address] [place] [phone] Rhoda Choudhary MD PhD CONJUNCTIVAL BIOPSY - left eye 08/05/2024 12:15 PM CDT Anesthesia Event [facility] Operating Room [address] [place] [phone] Santiago Hannah MD Wilkinson, Christina A., NP 08/05/2024 10:13 AM CDT - 08/05/2024 1:36 PM CDT Hospital Encounter [facility] [address] [facility] [place] [address] Rhoda Choudhary MD PhD Unspecified disorder of conjunctiva Discharge Disposition: Discharge to home or self care from Last 3 Months Surgical History Surgery Date Site/Laterality Comments SECTION 04/23/2015 - 04/22/2016 SINUS SURGERY 09/18/2023 SLEEVE GASTROPLASTY 04/23/2020 - 04/22/2021 HYSTEROSCOPY 07/11/2024 Medical History Medical History Date Comments Type 2 diabetes mellitus (HCC) Anxiety Polycystic ovary syndrome Asthma PONV (postoperative nausea and vomiting) Hypothyroidism Family History Medical History Relation Name Comments Hypertension Father Hypertension Mother Anesthesia problems Neg Hx Relation Name Status Comments Father Alive Mother [...] 08/05/2024 10:30 AM CDT Plan of Treatment Health Maintenance Due Date Last Done Comments Cervical Cancer Screening 1990 Hepatitis C Screening 1990 Dilated Eye Exam 1990 Varicella Vaccines (1 of 2 - 13+ 2-dose series) 2003 Hepatitis B Screening 2008 Regular Well Visit/Exam 18-64 2008 Pneumococcal vaccine <65 (1 of 2 - PCV) 2009 Zoster Vaccine (1 of 2) 2009 Lipid Panel 01/14/2020 01/13/2019 Albumin Creatinine Ratio, Urine 01/19/2020 9 eGFR 01/19/2020 01/18/2019 Hemoglobin A1C 06/16/2020 12/15/2019, 04/24, 01/13/2019, Additional history exists Covid-19 Vaccine (3 - Modern a risk series) 07/08/2020 06/10/2020, 05/13/2020 Depression Screening 12/14/2020 12/15/2019, 05/19/2019, 02/10/2019 Foot Exam 12/14/2020 12/15/2019, 04/24, 02/10/2019, Additional history exists Influenza Vaccine (Season Ended) 2024 02/04/2020, 01/12/2020, 04/23/2012 DTaP/Tdap/Td Vaccine (2 - Td or Tdap) 10/27/2027 10/26/2017, 04/23/2008 HPV Vaccines Completed 06/01/2023, 05/2022, 10/25/2022 Medical Devices Implanted Type Area Date Night Sitter Device Identifier Shelf Expiration Date Model / Serial / Lot Bio Tissue Inc Amniograft 2.5x2cm Allograft Cryopreserved A [id number] Graft Ag-2520 - [id number] - [id number] Implanted:Qty: 1 on 08/05/2024 by Rhoda Choudhary MD PhD at [facility] Left: Eye [employer] 01/09/2026 [id number] / [id number] Procedures Procedure Name Priority Date/Time Associated [...] Morbid obesity with BMI of 45.0-49.9, adult ([facility]) ALBUMIN CREATININE RATIO, URINE Routine 01/18/2019 7:18 AM CDT Type 2 diabetes mellitus with hyperglycemia, without long-term current use of insulin ([facility]) POCT LIPID PANEL Routine 01/13/2019 9:40 AM CDT Type 2 diabetes mellitus with hyperglycemia, without long-term current use of insulin ([facility]) from Last 3 Months or Most Recently Relevant to Health Maintenance Results * POCT glucose (08/05/2024 1:24 PM CDT) Glucose, POC 88 70 - 199 mg/dL Comment: Interpretive Data Glucose is assumed to be non-fasting. Fasting Glucose reference ranges are: 0 - 150 years: 70 mg/dL - 99 mg/dL Current interpretive data was last revised on 2014. POC Performer [id number] NELSY BJWCH POC Device Number [id number] NELSY BJWCH Blood 08/05/2024 1:24 PM CDT 08/05/2024 1:24 PM CDT us Rhoda Choudhary MD PhD LAB POCT ORDERABLES - DEVICE Final Result NELSY CARRENOWCH [address] [facility]. [place] [address] * Surgical pathology (08/05/2024 12:43 PM CDT) Tissue (Mass/Tumor/Lesio n) 08/05/2024 12:43 PM CDT Narrative [facility] - 08/08/2024 6:15 PM CDT EPIC results best viewed via link to PDF [facility] [place] [address] Note to Patients: This report may contain [...] Gender: F : 1990 (Age: 34) Address: [address] [place] [phone] [facility] #: [id number] Taken:08/05/2024 Received:08/05/2024 Reported: 08/08/2024 Patient Type: [facility] EP [facility] Location: Physician(s): Rhoda Choudhary MD, PHD John Roth M.D. Diagnosis: Conjunctiva, left eye, excisional biopsy: - Epithelial inclusion cyst (see comment) [facility]/08/08/2024 18:15 By this signature, I attest [...] with orientation preserved. Labeled A1. Jar 0. [facility]08/06/2024 19:19 Gross Pathologist: Fco Portillo M.D. By this signature, I attest that the above diagnosis is based upon my personal examination of the slides(and/or other material). Addenda/Procedures Microscopic slide review and interpretation for this case was performed at [facility], Department of Surgical Pathology, [address] [facility], [place] [id number], [place] [address] CLIA # [id number] The performance characteristics of some immunohistochemical stains, fluorescence in-situ hybridization tests and immunophenotyping by flow cytometry cited in this report (if any) were determined by the Surgical Pathology and Flow Cytometry Departments at [facility] as part of an ongoing quality assurance project manager program and in compliance with federally mandated [...] Surgical Pathology and Flow Cytometry Departments of [facility]. It has not been cleared or approved by the [place]. S. Food and Drug Administration. IMAGES AND SCANNED DOCUMENTS, IF INCLUDED, ONLY VIEWABLE IN PDF VERSION OF REPORT Rhoda Choudhary MD PhD LAB PATHOLOGY ORDERAB LES Final Result PATHOLOGY [facility] * (ABNORMAL) POCT glucose (08/05/2024 12:13 PM CDT) Glucose, POC 67(L) 70 - 199 mg/dL Comment: Interpretive Data Glucose is assumed to be non-fasting. Fasting Glucose reference ranges are: 0 - 150 years: 70 mg/dL - 99 mg/dL Current interpretive data was last revised on 2014. POC Performer [id number] [id number] POC Device Number [id number] NELSY CARRENOCH Blood 08/05/2024 12:1 3 PM CDT 08/05/2024 12:13 PM CDT Rhoda Choudhary MD PhD LAB POCT ORDERABLES - DEVICE Final Result NELSY CARRENOCH [address] [facility]. [place] [address] * POCT glucose (08/05/2024 10:48 AM CDT) Glucose, POC 72 70 - 199 mg/dL Comment: Interpretive Data Glucose is assumed to be non-fasting. Fasting Glucose reference ranges are: 0 - 150 years: 70 mg/dL - 99 mg/dL Current interpretive data was last revised on 2014. POC Performer [id number] NELSY BJWCH POC Device Number [id number] NELSY BJWCH Blood 08/05/2024 10:4 8 AM CDT 08/05/2024 10:48 AM CDT Rhoda Choudhary MD PhD LAB POCT ORDERABLES - DEVICE Final Result [facility] [address] [facility] [place] [address] * POCT hCG, urine (08/05/2024 10:28 AM [...] established Microalbumin/creat ratio 8 <30 mcg/mg creat [facility] [place] Comment: The ADA defines [...] Agency Comment Performing Organization Information: Site ID: [place] Name: [employer] Address: [address] [address] Director: Vahid Mendoza D.O., MPH us Radha Valencia MD LAB URINE ORDERABLE S Final Result [facility] [place] * (ABNORMAL) Comprehensive metabolic panel (01/18/2019 7:18 AM CDT) Glucose 152(H) 65 - 99 mg/dL [facility] [place] Comment: Fasting reference interval For someone without known diabetes, a glucose value >125 mg/dL indicates that they may have diabetes and this should be confirmed with a follow-up test. BUN 16 7 - 25 mg/dL [facility] [place] Creatinine 0.72 0.50 - 1.10 mg/dL [facility] [place] eGFR NON-AFR. BOTSWANAN 114 > OR = 60 mL/min/1. 73m2 [...] Alb/glob ratio 1.4 1.0 - 2.5 (calc) [facility] [place] Bilirubin, total 0.3 0.2 - 1.2 mg/dL [facility] [place] Alk phos 87 33 - 115 U/L [facility] [place] AST 41(H) 10 - 30 U/L [facility] [place] ALT (SGPT) 31(H) 6 - 29 U/L [facility] [place] Blood specimen (specimen) 01/18/2019 7:18 AM CDT 01/18/2019 7:21 AM CDT Narrative [facility] - 01/20/2019 11:37 AM CDT COLLECTION KIT GIVEN TO PATIENT. PATIENT ADVISED TO RETURN. Resulting Agency Comment Performing Organization Information: Site ID: [id number] Name: Onur [facility]ble Address: [address] [address] Director: Vahid Mendoza D.O., MPH us Radha Vlaencia MD LAB BLOOD ORDERABLE S Final Result [...] Most Recently Relevant to Health Maintenance Insurance [facility] [employer] Care Teams White Sugar Supervisor Relationship Specialty Start Date End Date Joselyn Dupont MD [address] [place] [address] PCP - General Family Medicine 07/29/24 Joselyn Dupont MD [address] [place] [address] [address] Family Medicine 09/07/23
--- OUTSIDE RECORDS SUMMARY | 2024-10-27 07:33 | XMS_ITS | Clinical Summary ---
Author Organization [facility] Address [address] [place] [address] Care Team Providers Care Intelligence Engineer Name Role Phone Joselyn Dupont MD Primary Care Provider [phone] Allergies No known active allergies Medications albuterol [...] hours as needed for Nausea. 12 tablet Active Immunizations Immunization Administration Dates Next Due MODERNA COVID-19 (12+) [...] Sex Assigned at Female 05/30/2024 10:22 AM WOOD PILE DRIVER OPERATOR Legal Sex Female 5:53 PM WOOD PILE DRIVER OPERATOR Gender Identity Not on file Sexual Orientation [...] P M CDT Height 172.7 cm (5' 8) 07/04/2023 7:26 PM CDT Body Mass Index [...] - 2023-2 5 season) 2023 06/10/2020, 05/13/2020 DTaP, Tdap and Td Vaccines ( 3 [...] 5 Years) and At-Risk Patients (6 to 49 Years) Aged Out No longer eligible b ased on patient's age to complete this topic RSV Immunizations Under 20 Months Aged Out No longer eligible b ased on patient's age to complete this topic Insurance [facility] [address] [address] Care Teams Intelligence Engineer Relationship Specialty Start Date End Date Joselyn Dupont MD [address] [place] [address] PCP - General FAMILY PRACTICE 06/15/20
[2024-10-27 08:43] LABS: Thyroid Stimulating Hormone 1.760 uIU/mL (0.465-4.680)
[2024-10-27 09:23] LABS: Free T4 Free Thyroxine 1.08 ng/dL (0.78-2.19)
== END 2024-10-27 07:29 | disposition home or self-care (01) ==
LOC: ANHLAB 07:31
PROVIDERS: Visit Provider Physician Assistant
DX: E03.9 Hypothyroidism, unspecified (principal)
CPT/HCPCS: 36415; 84439; 84443

== ENCOUNTER 2025-03-04 07:21 | Outpatient (CLI) | payer OTHER, SELFPAY ==
--- NOTE | ~2025-03-04 | US_ITS ---
US abdomen limited Indication: hepatomegaly Comparison: None Technique: Guzman-scale and color Doppler images were obtained. Findings: LIVER: Liver measures 18.7 cm, no liver lesions identified. The portal vein is prominent measuring 1.5 cm. . GALLBLADDER/BILIARY: Unremarkable.No cholelithiais, wall thickening or pericholecystic fluid. No biliary dilatation. CBD 2.1 mm. Buena sign negative. PANCREAS: Unremarkable. Right Kidney: Right kidney 11.3 x 4.5 x 5.5 cm. Impression: 1. Nonspecific prominence of the portal vein, correlate for symptoms or portal venous hypertension. MRI may be of benefit to further evaluate Reviewed, dictated and finalized at location P. COMPILER Impression: 1. Nonspecific prominence of the portal vein, correlate for symptoms or portal venous hypertension. MRI may be of benefit to further evaluate
--- OUTSIDE RECORDS SUMMARY | 2025-03-04 07:26 | XMS_ITS | Clinical Summary ---
Author Organization [facility] Address [address] [place] [address] Phone Care Team Providers Care Graphics Editor Name Role Phone Joselyn Dupont MD Unavailable [phone] Joselyn Dupont MD Primary Care Provider Allergies [...] 1 tablet (50 mcg total) by mouth early intervention school psychologist before breakfast Active folic acid (FOLVITE) 1 [...] months Assessment & Plan (05/20/2019 10:28 AM CHAINER): Chronic, improving with treatment A1c today 6.5 [...] habits Assessment & Plan (05/20/2019 10:29 AM CHAINER): Chronic, unchanged Discussed about healthy lifestyle habits [...] Hirsutism Assessment & Plan (05/20/2019 10:29 AM CHAINER): Chronic , stable Recommend intensify healthy lifestyle [...] Encounters Date Type Department Care Team Description 12/04/2024 Telephone [facility] Medicine Ophthalmology [address] [facility] [address]th [place] [phone] Rhoda Choudhary MD PhD No Show from Last 3 Months Surgical History Surgery Date Site/Laterality Comments SECTION 04/23/2015 - 04/22/2016 SINUS SURGERY 09/18/2023 SLEEVE GASTROPLASTY 04/23/2020 - 04/22/2021 HYSTEROSCOPY 07/11/2024 Medical History Medical History Date Comments Type 2 diabetes mellitus Anxiety Polycystic ovary syndrome Asthma PONV (postoperative [...] 04/24, 02/10/2019, Additional history exists Influenza Vaccine (#1) 2024 , 01/12/2020, 04/23/2012 DTaP/Tdap/Td Vaccine (2 - Td or Tdap) 10/27/2027 10/26/2017, 04/23/2008 HPV Vaccines Completed 06/01/2023, 05/2022, 10/25/2022 Medical Devices Implanted Type Area Surgical Brace Maker Device Identifier Shelf Expiration Date Model / Serial / Lot Bio Tissue Inc Amniograft 2.5x2cm Allograft Cryopreserved A [id number] Graft Ag-2520 - [id number] - [id number] Implanted:Qty: 1 on 08/05/2024 by Rhoda Choudhary MD PhD at [facility] [place] Left: Eye [employer] 01/09/2026 [id number] Procedures Procedure Name Priority Date/Time Associated Diagnosis Comments POCT HEMOGLOBIN A1C Routine 12/15/2019 1 :51 PM CDT Type 2 diabetes mellitus with hyperglycemia, without long-term current use of insulin (HCC) COMPREHENSIVE METABOLIC PANEL Routine 01/18/2019 7:18 AM CDT Type 2 diabetes mellitus with hyperglycemia, without long-term current use of insulin ([facility]) Morbid obesity with BMI of 45.0-49.9, adult ([facility]) ALBUMIN CREATININE RATIO, URINE Routine 01/18/2019 7:18 AM CDT Type 2 diabetes mellitus with hyperglycemia, without long-term current use of insulin ([facility]) POCT LIPID PANEL Routine 01/13/2019 9:40 AM CDT Type 2 diabetes mellitus with hyperglycemia, without long-term current use of insulin ([facility]) from Last 3 Months or Most Recently Relevant to Health Maintenance Results * POCT hemoglobin A1c (12/15/2019 1:51 PM [...] Performing Organization Information: Site ID: [place] Name: Lin Gamble Address: [address] [address] Director: Vahid Mendoza D.O., MPH Radha Valencia MD LAB URINE ORDERABLE S Final Result [facility] [place] * (ABNORMAL) Comprehensive metabolic panel (01/18/2019 7:18 AM CDT) Glucose 152(H) 65 - 99 mg/dL [facility] [place] Comment: Fasting reference interval For someone without known diabetes, a glucose value >125 mg/dL indicates that they may have diabetes and this should be confirmed with a follow-up test. BUN 16 7 - 25 mg/dL [facility] [place] Creatinine 0.72 0.50 - 1.10 mg/dL [facility] [place] eGFR NON-AFR. [place] 114 > OR = 60 mL/min/1. 73m2 [facility] [place] EGFR 132 > OR = 60 mL/min/1. 73m2 [facility] [place] BUN/creat ratio NOT APPLICABLE [...] Bilirubin, total 0.3 0.2 - 1.2 mg/dL [facility] [place] Alk phos 87 33 - 115 U/L [facility] [place] AST 41(H) 10 - 30 U/L [facility] [place] ALT (SGPT) 31(H) 6 - 29 U/L [facility] [place] Blood specimen (specimen) 01/18/2019 7:18 AM CDT 01/18/2019 7:21 AM CDT Narrative [facility] - 01/20/2019 11:37 AM CDT COLLECTION KIT GIVEN TO PATIENT. PATIENT ADVISED TO RETURN. Resulting Agency Comment Performing Organization Information: Site ID: [place] Name: Lin Gamble Address: [address] [address] Director: Vahid Mendoza D.O., MPH us Radha Valencia MD LAB BLOOD ORDERABLE S Final Result [facility] [place] * POCT [...] Most Recently Relevant to Health Maintenance Insurance [facility] PL[facility] PL[facility] Care Teams Graphics Editor Relationship Specialty Start Date End Date Joselyn Dupont MD [address] [place] [address] PCP - General Family Medicine 07/29/24 Joselyn Dupont MD [address] [place] [address] [address] [address] Family Medicine 09/07/23
--- OUTSIDE RECORDS SUMMARY | 2025-03-04 07:26 | XMS_ITS | Clinical Summary ---
Author Organization [facility] Address [address] [facility] [place] [address] Care Team Providers Care Fire Captain Name Role Phone Unavailable Primary Care Provider [...] days. 2 mL 5 04/09/2024 5:54 PM DESIGN SPECIALIST 4 Active tirzepatide (Mounjaro) 15 mg/0.5 mL Pen Injector Inject 0.5 mL (15 mg) by subcutaneous injection every week as directed 2 mL 5 07/24/2024 3:23 PM CDT 5 Active tirzepatide (Mounjaro) 15 mg/0.5 mL Pen Injector Inject 0.5 mL (15 mg) by subcutaneous injection every 7 days. 2 mL 5 01/25/2025 3:18 PM CDT 5 Active fluconazole (DIFLUCAN) 150 mg tablet Take 1 tablet by mouth 1 time. May repeat dose in 72 hours if symptoms have not completely resolved. 2 Tablet 09/30/2024 10:54 AM CDT 5 Active tirzepatide (Mounjaro) 15 mg/0.5 mL Pen Injector Inject 0.5 mL (15 mg) by subcutaneous injection every 7 days. 2 mL 5 02/21/2025 3:39 PM CDT 5 Active Encounters Date Type Department Care Team Description 02/10/2025 External Device Data [facility] Provider, Abstract 01/07/2025 External Device Data [facility] Provider, Abstract 12/09/2024 External Device Data [facility] Provider, Abstract 12/09/2024 External Device Data [facility] Provider, Abstract [...] (1 of 3 - 19+ 3-dose series) 02/22 HPV/Cotest (21-29) 2011 HPV VACCINES (1 - 3-dose SCDM series) 2017 CERVICAL CANCER SCREENING 2020 HPV/Cotest (30-65) 2020 PAP SMEAR 2020 INFLUENZA VACCINE (#1) 2024 Insurance [employer] Commercial RX [employer] RX Member Subscriber Plan / Payer (Ef fective for All Dates) Name:Aretha Schilling Relation to Subscriber:Self Name:Aretha Schilling Payer ID:Not on file Group ID:[id number] Type:RX Commercial Address: [address]
== END 2025-03-04 07:22 | disposition home or self-care (01) ==
PROVIDERS: PCP Physician Assistant; Visit Provider Physician Assistant
DX: K76.6 Portal hypertension (principal); R16.0 Hepatomegaly, not elsewhere classified
CPT/HCPCS: 76705

== ENCOUNTER 2025-03-24 13:05 | Outpatient (CLI) | payer OTHER, SELFPAY ==
[2025-03-24 13:45] LABS: Hematocrit 38.5 % (37.0-47.0); Hemoglobin 12.9 g/dL (12.0-15.0)
[2025-03-24 13:56] LABS: Anion Gap 4 mmol/L (4-12); Blood Urea Nitrogen 16 mg/dL (7-17); Calcium 8.7 mg/dL (8.4-10.2); Carbon Dioxide 26 mmol/L (22-30); Chloride 107 mmol/L (98-107); Estimated Glomerular Filt Rate > 60; Glucose 74 mg/dL (65-110); Potassium 4.5 mmol/L (3.4-5.0); Sodium 137 mmol/L (137-145)
--- OUTSIDE RECORDS SUMMARY | 2025-03-24 14:05 | XMS_ITS | Clinical Summary ---
Author Organization [facility] Address [address] [place] [address] Phone Care Team Providers Care Garage Door Opener Installer Name Role Phone Joselyn Dupont MD Unavailable [phone] Joselyn Dupont MD Primary Care Provider Allergies [...] 1 tablet (50 mcg total) by mouth artificial pearl maker before breakfast Active folic acid (FOLVITE) 1 [...] months Assessment & Plan (05/20/2019 10:28 AM COLLECTION TECHNICIAN): Chronic, improving with treatment A1c today 6.5 [...] habits Assessment & Plan (05/20/2019 10:29 AM COLLECTION TECHNICIAN): Chronic, unchanged Discussed about healthy lifestyle habits [...] Hirsutism Assessment & Plan (05/20/2019 10:29 AM COLLECTION TECHNICIAN): Chronic , stable Recommend intensify healthy lifestyle [...] syndrome 10/18/2017 Overview (08/13/2024): Borderline LGA growth Surgical History Surgery Date Site/Laterality Comments SECTION [...] 05/2022, 10/25/2022 Medical Devices Implanted Type Area Director Internal Communications Device Identifier Shelf Expiration Date Model / Serial / Lot [employer] Amniograft 2.5x2cm Allograft Cryopreserved A [id number] [id number] - [id number] - [id number] Implanted:Qty: 1 on 08/05/2024 by Rhoda Choudhary MD PhD at [facility] [place] Left: Eye [employer] 01/09/2026 [id number] / [id number] Procedures Procedure Name Priority Date/Time Associated [...] Blood specimen (specimen) 12/15/2019 1:51 PM CDT Carlos Eduardo Erik [place] MD POINT OF CARE TEST ORDERABLES [...] Agency Comment Performing Organization Information: Site ID: [place] Name: [facility] Address: [address] [address] Director: Vahid Mendoza D.O., MPH Radha [place] MD LAB URINE ORDERABLE S Final Result [facility] [place] * (ABNORMAL) Comprehensive metabolic panel (01/18/2019 7:18 AM CDT) Glucose 152(H) 65 - 99 mg/dL [facility] [place] Comment: Fasting reference interval For someone without known diabetes, a glucose value >125 mg/dL indicates that they may have diabetes and this should be confirmed with a follow-up test. BUN 16 7 - 25 mg/dL [facility] [place] Creatinine 0.72 0.50 - 1.10 mg/dL [facility] [place] eGFR NON-AFR. CITIZEN OF [place] 114 > OR = 60 mL/min/1. 73m2 [facility] [place] EGFR 132 > OR = 60 mL/min/1. 73m2 [facility] [place] BUN/creat ratio NOT [...] Site ID: [id number] Name: [facility] Address: [address] [address] Director: Vahid Mendoza D.O., MPH us Radha [place] MD LAB BLOOD ORDERABLE S Final Result [facility] [place] * POCT lipid panel [...] Most Recently Relevant to Health Maintenance Insurance [facility] PL[facility] PLUS [place] [id number] Care Teams Garage Door Opener Installer Relationship Specialty Start Date End Date Joselyn Dupont MD [address] [place] [address] PCP - General Family Medicine 07/29/24 Joselyn Dupont MD [address] [place] [address] Family Medicine 09/07/23
--- OUTSIDE RECORDS SUMMARY | 2025-03-24 14:05 | XMS_ITS | Clinical Summary ---
Author Organization [facility] Address [address] [place] [address] Care Team Providers Care Feltmaker And Weigher Name Role Phone Joselyn Dupont MD Primary Care Provider Unavailab le Allergies No known active allergies Medications albuterol [...] for Nausea. 12 tablet 4 Active Immunizations Immunization Administration Dates Next Due [...] Sex Assigned at Female 05/30/2024 10:22 AM SUPERVISOR KEYMODULE ASSEMBLY Legal Sex Female 5:53 PM SUPERVISOR KEYMODULE ASSEMBLY Gender Identity Not on file Sexual Orientation [...] Annual Physical 1993 Hepatitis C 2008 Hepatitis A Vaccines (1 of 2 - Risk 2-dose series) 2009 Hepatitis B Vaccines (1 of 3 - 19+ 3-dose series) 2009 HPV Vaccines (1 - 3-dose SCD M series) 2017 Cervical Cancer Screening Pa p with HPV Testing (Age 30 to 64) Every 5 Years 2020 Cervical Cancer Screening wi th HPV 2020 COVID-19 Vaccine (3 - 2024-2 6 season) 2024 06/10/2020, 05/13/2020 Influenza Adult (#1) 2025 01/12/2020, 04/23/2012 DTaP, Tdap and Td Vaccines ( 3 - Td or Tdap) 10/27/2027 10/26/2017, 04/23/2008 Meningococcal B Vaccine Aged Out No l [...] patient's age to complete this topic Insurance [facility] CRIME VI[employer]IMS [place] [id number] [address] Care Teams Feltmaker And Weigher Relationship Specialty Start Date End Date Joselyn Dupont MD PCP - General FAMILY PRACTICE 06/15/20
--- OUTSIDE RECORDS SUMMARY | 2025-03-24 14:05 | XMS_ITS | Clinical Summary ---
Author Organization [employer] [facility] Address [address] [address] Care Team Providers Care Cytotechnologist/Histotechnologist Name Role Phone Unavailable Primary Care Provider [...] days. 2 mL 5 04/09/2024 5:54 PM DOCUMENT CONTROL ASSISTANT 4 Active tirzepatide (Mounjaro) 15 mg/0.5 mL [...]
--- OUTSIDE RECORDS SUMMARY | 2025-03-24 14:05 | XMS_ITS | Encounter Summary ---
Author Organization [facility] Address [facility] [place] [address] Care Team Providers Care Heel Emery Buffer Name Role Phone Joselyn Dupont MD Primary Care Provider Unavailab le Encounter Details Date Type Department Care Team (Late st Contact Info) Description 09/28/2018 Abstract [facility] CONVERSION [address] [place] [address] , Generic Conversion, Social History Tobacco Use Types Packs/Day Years Used Date Smoking Tobacco: Never Assessed Comments Unknown Sex and Gender Information Value Date Recorded Sex Assigned at Female 05/30/2024 10:22 AM CUSTOM FEED MILL OPERATOR HELPER Legal Sex Female 5:53 PM CUSTOM FEED MILL OPERATOR HELPER Gender Identity Not on file Sexual Orientation Not on file documented as of this encounter Plan of Treatment Not on file documented as of this encounter Visit Diagnoses Not on filedocumented in this encounter Care Teams Heel Emery Buffer Relationship Specialty Start Date End Date Joselyn Dupont MD PCP - General FAMILY PRACTICE 06/15/20 documented as of this encounter
== END 2025-03-24 13:06 | disposition home or self-care (01) ==
LOC: ANHSURGERY 13:08
PROVIDERS: Anesthesiology; PCP Physician Assistant; Visit Provider Obstetrics & Gynecology
DX: R58 Hemorrhage, not elsewhere classified (principal); E11.9 Type 2 diabetes mellitus without complications; Z01.818 Encounter for other preprocedural examination
CPT/HCPCS: 36415; 80048; 85014; 85018

== ENCOUNTER 2025-03-26 02:22 | Day surgery (SDC) | payer OTHER, SELFPAY ==
--- NOTE | 2025-03-23 06:58 | PM.IMHP ---
H&P: HPI History of Present Illness Date/Time: 03/23/25 06:58 Chief Complaint: Excessive heavy bleeding Narrative: Since 35-year-old female 3 para 2 admitted for hysteroscopy dilatation secondary to excessive heavy bleeding. This is her 2nd D and C she she had 1 more 6 months ago. Ultrasound shows thickened endometrium. Attempts at medical therapy been on successful. Risks and benefits of this procedure reviewed. She received the ACOG handout entitled hysteroscopy as well as dilatation curettage respectively. She had all questions answered. She asked to proceed Review of Systems Review of Systems: Pertinent positives per HPI. Patient denies any fever, chills, rash, headache, visual changes, dizziness, cough, shortness of breath, chest pain, palpitations, nausea, vomiting, diarrhea, constipation, abdominal pain, or any urinary issues. [facility] Past Medical History Medical History Headache Asthma Anxiety Type 2 diabetes mellitus Surgical History Surgical History H/O gastric sleeve (~2020) H/O rhinoplasty (~2011) H/O sinus surgery History of (~2015) Family History Family History Father Asthma Diabetes mellitus Hypertension Depression Anxiety Mother Asthma Hypertension Social History Social History Smoking status: Never smoker Alcohol intake: never Substance use: never Substance use type: does not use Lack of Transportation: No Lack of Food: Never True Current Housing: I Have Housing Concerned About Future Housing: No Difficulty Paying Gas/Electric Bills: No Difficulty Paying for Meds: No Currently Unemployed: No Education: Master's Degree or Higher Difficulty w/ Childcare or Family Care: No Living arrangements: with family Occupation/Education: occupation 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 Gender identity (if verbalized by the patient): Female Spiritual care concerns: No Agree to blood products: Yes Meds Home Medications and Allergies Home Medications ?Medication ?Instructions ?Recorded ?Confirmed ?Type sertraline 100 mg tablet 150 mg PO DAILY 05/24/19 07/11/24 History albuterol sulfate 90 mcg/actuation 2 puff inhalation PRN 06/08/19 07/02/24 History aerosol inhaler (ProAir HFA) alprazolam 0.5 mg tablet 0.5 mg PO PRN 06/08/19 07/02/24 History minocycline 100 mg capsule 100 mg PO BID 09/15/22 07/02/24 History norgestimate 0.25 mg-ethinyl 1 tablet PO DAILY 09/15/22 07/11/24 History estradiol 0.035 mg tablet (Sprintec (28)) folic acid 1 mg tablet 1 mg PO DAILY 07/02/24 07/11/24 History levothyroxine 50 mcg tablet 50 mcg PO DAILY 07/02/24 07/11/24 History loratadine 10 mg tablet (Claritin) 10 mg PO DAILY 07/02/24 07/11/24 History tirzepatide 12.5 mg/0.5 mL 12.5 mg subcut WEEKLY 07/02/24 07/02/24 History subcutaneous pen injector (Terence) hydrocodone 5 mg-acetaminophen 325 1 tablet PO Q4H PRN pain #20 tabs 07/11/24 Rx mg tablet prednisone 20 mg tablet 40 mg (2 x 20 mg) PO DAILY 5 days 07/20/24 Rx #10 tabs Allergies Allergy/AdvReac Type Severity Reaction Status Date / Time No Known Allergies Allergy Verified 07/20/24 10:14 Exam Narrative: General: Well-developed, well nourished, in no apparent distress Head: Normocephalic, atraumatic Eyes: Pupils equally round and reactive to light bilaterally, EOM intact, sclera and conjunctive clear, no discharge, lids normal Ears: TMs intact and clear, ear canals clear, no drainage, grossly hearing normal. Nose: Nares patent, clear nasal discharge, moderate inflammation, ethmoid and maxillary sinus tenderness. Mouth: Oral pharynx without lesions or masses, good dentition, MMM. Neck: Supple, trachea midline, no enlargement of anterior or posterior cervical nodes, no thyroid masses or goiter palpable. Cardio: Regular rate and rhythm, s1 and s2 normal, no murmur appreciated. Resp: Clear to auscultation bilaterally, no rhonchi, rales, wheezing or rubs Assessment and Plan Assessment and plan (1) Excessive bleeding: Code(s): R58 - Hemorrhage, not elsewhere classified Status: Acute Plan Proceed with hysteroscopy/dilatation curettage
--- NOTE | 2025-03-23 10:25 | PC.NURSE ---
[facility] has started construction of its new state of the art ER which will open Spring 2026. With this, we anticipate parking may be a challenge for some our surgical patients and families. Parking spaces are limited but are available for all Surgical, obstetrics, and ER patients sharing this lot. If you arrive and find you are having a hard time finding a parking space, please note that we understand the challenges, please drive around the hospital and park near Hospital Entrance 1. When you enter this entrance, you can ask a volunteer to direct or take you back to the surgical waiting area to check in. We appreciate everyone?s understanding of these expected challenges while we build for your future. Report to the Outpatient Waiting Room, entrance under the green pavilion located off [address], at time _7:30 AM on date __03/26/25 . Planned Procedure Time: __9:30 AM .? Time changes happen often and if your time is changed the preop area will call you the afternoon before. - You and your visitor will be asked to self-screen and do not enter if you have any COVID symptoms. Please call surgeon if you need to reschedule. - A mask is optional within the hospital at this time. Patients may have clear liquids (water, carbonated beverages, clear teas, apple juice) until 3 hours prior to surgery( 6:30 AM) with a maximum of 20 ounces. - No food from midnight until time of surgery and no smoking, or chewing tobacco (or any form of nicotine). No chewing gum, candy or mints. - Take only the following medications with a SIP of water on the morning of surgery: __ALPRAZOLAM,LEVOTHYROXINE, INHALER IF NEEDED DO NOT STOP ANY OF YOUR OTHER PRESCRIPTION MEDICATIONS PRIOR TO SURGERY EXCEPT THE FOLLOWING Hold all vitamins and supplements for 3 days per anesthesiologist. Medications to discontinue per physician NONE PT STATES PER DR SHY EDGE 14 DAYS PRE OP Please no make-up, nail south african, hairspray, perfume, deodorant, or body powder the day of surgery.? No jewelry (including any body piercings) or valuables the day of surgery, leave them at home.? Please take a shower or bath the night before, or the morning of, surgery with an antibacterial soap.? Wear comfortable, loose fitting clothing.? Children are encouraged to wear pajamas. - Jewelry must be removed prior to entering the operating room.? Rings and piercings that are not removed may be cut off. - The hospital will not accept responsibility for valuables.? - Please leave all valuables, including medications, at home the day of surgery. If you are going home after surgery, a licensed miniature train driver must drive you home.? - NO public transportation without another adult if you receive anesthesia. - We recommend that an adult stay with you for 24 hours following discharge. - We also recommend that you do not drive, make important decision, drink alcoholic beverages, or take any drugs that were not prescribed by your health care provider for at least 24 hours after your discharge time. Follow any additional instructions given to you from your surgeon. Telephone instructions given to ___PATIENT and asked if any additional questions and then verbalized understanding. Patient advised to call surgeon office or pre surgery nurse liaison [phone] if any additional questions.
[2025-03-23 10:47] VITALS: BMI 24.0
--- OUTSIDE RECORDS SUMMARY | 2025-03-26 02:25 | XMS_ITS | Encounter Summary ---
Author Organization [facility] Address [facility] [place] [address] Care Team Providers Care Dermatology Nurse Practitioner Name Role Phone Joselyn Dupont MD Primary Care Provider Unavailab le Encounter Details Date Type Department Care Team (Late st Contact Info) Description 09/28/2018 Abstract [facility] CONVERSION [address] [place] [address] , Generic Conversion, Social History Tobacco Use Types Packs/Day Years Used Date Smoking Tobacco: Never Assessed Comments Unknown Sex and Gender Information Value Date Recorded Sex Assigned at Female 05/30/2024 10:22 AM COMPUTER SYSTEM SPECIALIST Legal Sex Female 5:53 PM COMPUTER SYSTEM SPECIALIST Gender Identity Not on file Sexual Orientation Not on file documented as of this encounter Plan of Treatment Not on file documented as of this encounter Visit Diagnoses Not on filedocumented in this encounter Care Teams Dermatology Nurse Practitioner Relationship Specialty Start Date End Date Joselyn Dupont MD PCP - General FAMILY PRACTICE 06/15/20 documented as of this encounter
--- OUTSIDE RECORDS SUMMARY | 2025-03-26 02:25 | XMS_ITS | Clinical Summary ---
Author Organization [facility] Address [address] [place] [address] Care Team Providers Care Medical Records Coordinator Name Role Phone Joselyn Dupont MD Primary [...] Sex Assigned at Female 05/30/2024 10:22 AM DIESEL LOCOMOTIVE CRANE OPERATOR Legal Sex Female 5:53 PM DIESEL LOCOMOTIVE CRANE OPERATOR Gender Identity Not on file Sexual [...] patient's age to complete this topic Insurance [facility] CRIME VICTIMS [address] [address] Care Teams Medical Records Coordinator Relationship Specialty Start Date End Date Joselyn Dupont MD PCP - General FAMILY PRACTICE 06/15/20
--- OUTSIDE RECORDS SUMMARY | 2025-03-26 02:25 | XMS_ITS | Clinical Summary ---
Author Organization [employer] [facility] Address [address] [place] [address] Care Team Providers Care Ambulatory Analyst Name Role Phone Unavailable Primary Care [...] days. 2 mL 5 04/09/2024 5:54 PM TENON MACHINE OPERATOR 4 Active tirzepatide (Mounjaro) 15 [...] Encounters Date Type Department Care Team Description 03/24/2025 External Device Data [facility] ABSTRACTION Provider, Abstract 02/10/2025 External Device Data [facility] ABSTRACTION Provider, [...]
--- OUTSIDE RECORDS SUMMARY | 2025-03-26 02:25 | XMS_ITS | Encounter Summary ---
Author Organization [facility] Address [address] [place] [address] Care Team Providers Care Tester Electronic Scale Name Role Phone Unavailable Primary Care Provider Unavailabl e Encounter Details Date Type Department Care Team (Late st Contact Info) Description 03/24/2025 External Device Data [facility] ABSTRACTION [...]
--- NOTE | 2025-03-26 07:05 | WPDHPUPDATE1 ---
History and Physical Update Update Date/Time: 03/26/25 07:05 History and Physical has been reviewed, including an updated exam of the patient. There are NO changes in the patient's condition. Risks, benefits, and alternatives have been discussed and questions answered. Patient agrees to proceed with procedure.
--- NOTE | 2025-03-26 08:17 | SUR.PREOP ---
PT S/P GSV 2020; HAD WEIGHT LOSS AND IS NOT MANAGED WITH MEDS OR DIET FOR DIABETES SINCE. SERUM GLUCOSE 74MG/DL ON PREOP BMP 03/24/25.
[2025-03-26] MEDS: ACETAMINOPHEN 500 MG TABLET 1000 MG PO (08:26)
[2025-03-26 08:27] VITALS: BP 104/79; PULSE 66; RESP 16; TEMP 36.9; O2SAT 100
--- NOTE | 2025-03-26 09:09 | WPDANESEPPF ---
Anes - Initial Pre Proc Eval Procedure: Operation Date: 03/26/25 09:30 Proposed Procedures p Hysteroscopy, Dilation and Curettage - Sebas Askew MD Date/Time: 03/26/25 09:09 Surgeon: Sebas Askew MD Pre Op Diagnosis: excessive bleeding Patient Data Age: 35 Gender: F Height: 1.73 m Weight: 73.9 kg Last Vital Signs Temp 36.9 C 03/26/25 08:27 Pulse 66 03/26/25 08:27 Resp 16 03/26/25 08:27 BP 104/79 03/26/25 08:27 Pulse Ox 100 03/26/25 08:27 O2 Del Method Room Air 03/26/25 08:27 Allergies Allergy/AdvReac Type Severity Reaction Status Date / Time No Known Allergies Allergy Verified 03/26/25 08:25 Home Medications ?Medication ?Instructions ?Recorded ?Confirmed ?Type sertraline 100 mg tablet 150 mg PO DAILY 05/24/19 03/23/25 History albuterol sulfate 90 mcg/actuation 2 puff inhalation PRN 06/08/19 03/23/25 History aerosol inhaler (ProAir HFA) alprazolam 0.5 mg tablet 0.5 mg PO PRN 06/08/19 03/23/25 History minocycline 100 mg capsule 100 mg PO BID 09/15/22 03/23/25 History norgestimate 0.25 mg-ethinyl 1 tablet PO DAILY 09/15/22 03/23/25 History estradiol 0.035 mg tablet (Sprintec (28)) folic acid 1 mg tablet 1 mg PO DAILY 07/02/24 03/23/25 History levothyroxine 50 mcg tablet 50 mcg PO DAILY 07/02/24 03/26/25 History loratadine 10 mg tablet (Claritin) 10 mg PO DAILY 07/02/24 03/23/25 History tirzepatide 12.5 mg/0.5 mL 12.5 mg subcut WEEKLY 07/02/24 03/23/25 History subcutaneous pen injector (Mounjaro) hydrocodone 5 mg-acetaminophen 325 1 tablet PO Q4H PRN pain #20 tabs 07/11/24 03/23/25 Rx mg tablet prednisone 20 mg tablet 40 mg (2 x 20 mg) PO DAILY 5 days 07/20/24 03/23/25 Rx #10 tabs tirzepatide 15 mg/0.5 mL 15 mg subcut WEEKLY 03/23/25 03/23/25 History subcutaneous pen injector (Terence) hydrocodone 5 mg-acetaminophen 325 1 tablet PO Q4H PRN pain #20 tabs 03/26/25 Rx mg tablet Laboratory Tests 03/26/25 08:34 POC Capillary Glucose 79 mg/dl (65-105) Patient hx anesthesia problems: none Family hx anesthesia problems: none Results Review: All pre-operative results and documents have been reviewed as part of the pre-operative evaluation. [facility] Past Medical History Medical History Headache Asthma Anxiety Type 2 diabetes mellitus Surgical History Surgical History H/O gastric sleeve (~2020) H/O rhinoplasty (~2011) H/O sinus surgery History of (~2015) Family History Family History Father Asthma Diabetes mellitus Hypertension Depression Anxiety Mother Asthma Hypertension Social History Social History Smoking status: Never smoker Alcohol intake: current Alcohol use details: 2 DRINKS PER MONTH Substance use: never Substance use type: does not use Lack of Transportation: No Lack of Food: Never True Current Housing: I Have Housing Concerned About Future Housing: No Difficulty Paying Gas/Electric Bills: No Difficulty Paying for Meds: No Currently Unemployed: No Education: Master's Degree or Higher Difficulty w/ Childcare or Family Care: No Living arrangements: with family Occupation/Education: occupation Additional occupation/education comments: [employer] Gender identity (if verbalized by the patient): Female Spiritual care concerns: No Agree to blood products: Yes Anes - Eval Final PreProcedure Day of Procedure 03/26/25 09:09 Patient weight: normal Heart: regular rate and rhythm Lungs: clear to auscultation Airway: Mallampati scale class 1 Neurological: alert and oriented Last oral intake: >/= 8 hours ASA classification: II Emergent: no Anesthetic plan: proceed Anesthesia type and monitoring: general GIVS and standard monitoring Results Review: All pre-operative results and documents have been reviewed as part of the pre-operative evaluation. Informed Consent: The patient's anesthetic plan and its attendant risks and benefits were discussed with the patient/family/POA. Questions were solicited and answers provided to the satisfaction of the patient/family/POA.
[2025-03-26] MEDS: LIDOCAINE 1% LOCAL INJ 10 ML VIAL INFILTRATE (09:26)
--- NOTE | 2025-03-26 09:31 | S_PTH ---
PATIENT: Aretha Schilling LOC: [facility] U#:[id number] AGE/SX: 35/F ROOM: RE03/26/[address]: Sebas Askew MD : 1990 BED: DIS: 03/26/2025 SPEC #: [id number] RECD: 03/26/25 10:09 STATUS: [place] REQ #: [id number] NANCY: 03/26/25 09:[address]: eSbas Lloyd DEPT: [facility] Surgical RECD BY: Ivelisse Huynh ENTERED: 03/26/25 10:09 SP TYPE: Surgical OTHR DR: Velia Mcgee, PAJh Tissues: A - Endometrial Curettings Procedures: Hematoxylin and Eosin Stain Gross and Microscopic Level 4
--- NOTE | 2025-03-26 09:38 | W.PM.PROC2 ---
Procedure Note - Detailed Date of Procedure 03/26/25 Pre-op Diagnosis excessive bleeding Post-op Diagnosis Same Procedure Performed Hysteroscopy/dilatation curettage Surgeon Sebas Askew MD Anesthesia MAC and Local Indications 35-year-old female with excessive heavy bleeding Findings Uterus sounded 8.5cm. Thick endometrial tissue was seen. Each fallopian tube os could be seen. No definitive abnormalities could be seen. Description of Procedure Patient was prepped draped in the sterile fashion placed dorsal lithotomy position. Under excellent IV sedation weighted speculum placed in posterior fornix vagina. Anterior lip of the cervix grasped with a single-tooth tenaculum. 2.5cc 1% xylocaine anesthesia placed at 2, 4, 8, 10:00 a.m. of the cervix. Uterus sounded 8.5cm. Serial dilatation fragmented dilators performed followed by passage of the 5mm visualizing hysteroscope using normal saline as visualizing medium. Thick endometrial tissue was seen but no evidence of definitive abnormalities uterus was then scraped over the entire 360?. Instruments withdrawn blood loss estimated 5cc. All sponge, needle, instrument counts were correct. There were no immediate complications Drains No Pathology Yes Complications No immediate complications Condition Stable Disposition PACU
[2025-03-26 09:42] VITALS: BP 136/94; PULSE 64; RESP 15; O2SAT 100
[2025-03-26] MEDS: LACTATED RINGERS 1,000 ML 30 ML IV CONT (09:42)
[2025-03-26] MEDS: DEXTROSE 50% 25 GM/50 ML SYRINGE IV PUSH (09:47)
[2025-03-26 10:15] VITALS: BP 131/78; PULSE 55; RESP 16; O2SAT 100
[2025-03-26 10:45] VITALS: BP 105/70; PULSE 60; RESP 16
[2025-03-26 10:54] VITALS: BP 112/74; PULSE 72; RESP 16
== END 2025-03-26 10:57 | disposition home or self-care (01) ==
PROVIDERS: PCP Physician Assistant; Visit Provider Obstetrics & Gynecology
PROC: 0U5B8ZZ Destruction of Endometrium, Via Natural or Artificial Opening Endoscopic (ICD-10-PCS; CPT 58563; principal; 2025-03-26 09:30)
DX: R93.89 Abnormal findings on diagnostic imaging of other specified body structures (principal); J45.909 Unspecified asthma, uncomplicated; F41.9 Anxiety disorder, unspecified; E11.9 Type 2 diabetes mellitus without complications; Z79.51 Long term (current) use of inhaled steroids; Z79.891 Long term (current) use of opiate analgesic; Z79.52 Long term (current) use of systemic steroids; Z79.85 Long-term (current) use of injectable non-insulin antidiabetic drugs; Z98.890 Other specified postprocedural states; Z98.84 Bariatric surgery status
CPT/HCPCS: 58558; 82948; 88305; A9270; J1100; J1200; J2003; J2250; J2405; J2704; J3010; J7120